=== PATIENT | female | born 1970 | race Asian ===

== ENCOUNTER 2021-02-26 12:02 | Outpatient (REF) | payer OTHER, SELFPAY ==
--- NOTE | ~2021-02-26 | MM_ITS ---
EXAMINATION: MM SCREENING DIGITAL BREAST TOMOSYNTHESIS, BILATERAL CLINICAL INFORMATION: Screening. Asymptomatic. The lifetime risk of breast cancer based on the Tyrer-Cuzick Model is 8.2%. COMPARISON: Mammography: September 18, 2019 and studies dating back to December 31, 2011 TECHNIQUE: Digital mammography is performed in craniocaudal and mediolateral oblique views along with computer-aided detection (CAD). Digital breast tomosynthesis is performed in implant-displaced craniocaudal and implant-displaced mediolateral oblique views along with computer-aided detection (CAD). Synthesized 2D images are generated from the tomosynthesis. FINDINGS: The breasts are extremely dense, which lowers the sensitivity of mammography (ACR BI-RADS breast composition Category d). There are no significant masses, abnormal calcifications, or other abnormalities. MM/MM tomosynthesis screen imp BI IMPRESSION: There are no significant changes from prior study. ASSESSMENT: BI-RADS 1: Negative RECOMMENDATION: Routine annual mammography screening. This patient's information was entered into a reminder system with a target due date for their next mammogram.
== END 2021-02-26 12:03 | disposition home or self-care (01) ==
LOC: HO.MAMMO 12:02
PROVIDERS: PCP Internal Medicine; Visit Provider Internal Medicine
DX: Z12.31 Encounter for screening mammogram for malignant neoplasm of breast (principal)
CPT/HCPCS: 77063; 77067

== ENCOUNTER 2021-11-09 16:57 | Outpatient (REF) | payer OTHER, SELFPAY ==
[2021-11-09 17:11] LABS: MANUAL DIFF FLAG NO
[2021-11-09 17:18] LABS: Basophils Percent Auto 0.5 % (0-2); Eosinophils Absolute Auto 0.1 X10*3/uL (0.0-0.4); Eosinophils Percent Auto 1.1 % (0-4); Hematocrit 39.8 % (37.0-47.0); Hemoglobin 12.9 g/dl (12.0-16.0); Imm Gran Abs Auto 0.01 X10*3/uL (0.00-0.03); Imm Gran Pct Auto 0.2 % (0.0-0.4); Lymphocytes Absolute Auto 2.7 X10*3/uL (1.2-4.9); Mean Corpuscular HGB Conc 32.4 g/dl (31.0-35.0); Mean Corpuscular Hemoglobin 27.5 pg (27.0-33.0); Mean Corpuscular Volume 84.9 fL (80.0-98.0); Mean Platelet Volume 9.2 fL (9.4-12.3); Monocytes Absolute Auto 0.5 X10*3/uL (0.1-1.2); Monocytes Percent Auto 9.4 % (2-11); Neutrophils Absolute Auto 2.3 x10*3/uL (2.0-8.3); Neutrophils Percent Auto 40.8 % (45-73); Platelet Count 219 X10*3/uL (160-400); Red Blood Count 4.69 X10*6/uL (4.20-5.50); Red Cell Distribution Width 12.7 % (11.0-16.0); White Blood Count 5.5 X10*3/uL (4.8-10.8)
[2021-11-09 17:41] LABS: Alanine Aminotransferase 27 U/L (0-31); Anion Gap 11 (12-20); Aspartate Amino Transferase 29 U/L (5-31); Blood Urea Nitrogen 14 mg/dL (9-16); Calcium 9.9 mg/dL (8.4-10.2); Carbon Dioxide 28 mmol/L (22-29); Chloride 104 mmol/L (96-108); Cholesterol 266 mg/dL; Estimated Glomerular Filt Rate > 60; Glucose Random 87 mg/dL (60-115); HDL Cholesterol 95 mg/dL; LDL Cholesterol Calculated 163 mg/dl; Sodium 139 mmol/L (135-145); Triglycerides 43 mg/dL
[2021-11-09 18:03] LABS: Thyroid Stimulating Hormone 3.14 uIU/mL (0.32-4.0)
[2021-11-10 08:01] LABS: ~HepC Num1 0.11 S/CO (0.00-0.79); ~Hepatitis C Antibody Nonreactive (Nonreactive)
== END 2021-11-09 16:58 | disposition home or self-care (01) ==
LOC: HO.LAB 16:57
PROVIDERS: Visit Provider Internal Medicine
DX: Z00.00 Encounter for general adult medical examination without abnormal findings (principal); J45.909 Unspecified asthma, uncomplicated; F41.1 Generalized anxiety disorder
CPT/HCPCS: 36415; 80048; 80061; 84443; 84450; 84460; 85025; 86803

== ENCOUNTER 2022-03-03 15:55 | Outpatient (REF) | payer OTHER, SELFPAY ==
[2022-03-06 03:12] LABS: HPV mRNA E6/E7 rflx Not Detected (Not Detected)
== END 2022-03-03 15:56 | disposition home or self-care (01) ==
LOC: HO.LAB 15:55
PROVIDERS: PCP Internal Medicine; Visit Provider Obstetrics & Gynecology
DX: Z01.419 Encounter for gynecological examination (general) (routine) without abnormal findings (principal); Z30.432 Encounter for removal of intrauterine contraceptive device
CPT/HCPCS: 58301; 81003; 87624; 88142

== ENCOUNTER 2022-03-16 16:04 | Outpatient (REF) | payer OTHER, SELFPAY ==
--- NOTE | ~2022-03-16 | MM_ITS ---
EXAMINATION: MM SCREENING DIGITAL BREAST TOMOSYNTHESIS, BILATERAL CLINICAL INFORMATION: Screening. Asymptomatic. The lifetime risk of breast cancer based on the Tyrer-Cuzick Model is 9%. COMPARISON: Mammography: 02/26/2021, 09/18/2019 TECHNIQUE: Digital mammography is performed in craniocaudal and mediolateral oblique views along with computer-aided detection (CAD). Digital breast tomosynthesis is performed in implant-displaced craniocaudal and implant-displaced mediolateral oblique views along with computer-aided detection (CAD). Synthesized 2D images are generated from the tomosynthesis. FINDINGS: There are scattered areas of fibroglandular density (ACR BI-RADS breast composition Category b). There are bilateral implants. The implant contours are smooth and similar to prior studies. Fibroglandular parenchymal pattern is similar to prior exams. No developing density or interval mass or architectural abnormality. No abnormal calcifications. The axilla and skin contours are unremarkable. MM/MM tomosynthesis screen imp BI IMPRESSION: No mammographic evidence of malignancy. ASSESSMENT: BI-RADS 1: Negative RECOMMENDATION: Routine annual mammography screening. This patient's information was entered into a reminder system with a target due date for their next mammogram.
== END 2022-03-16 16:05 | disposition home or self-care (01) ==
LOC: HO.MAMMO 16:04
PROVIDERS: Visit Provider Internal Medicine
DX: Z12.31 Encounter for screening mammogram for malignant neoplasm of breast (principal)
CPT/HCPCS: 77063; 77067

== ENCOUNTER 2022-06-30 15:25 | Outpatient (REF) | payer OTHER, SELFPAY | END 2022-06-30 15:26 | disposition home or self-care (01) | LOC: HO.LAB 15:25 | PROVIDERS: Visit Provider Obstetrics & Gynecology | DX: R87.615 Unsatisfactory cytologic smear of cervix (principal) | CPT/HCPCS: 88142 ==

== ENCOUNTER 2022-09-11 10:31 | Outpatient (REF) | payer OTHER, SELFPAY ==
[2022-09-11 10:44] LABS: MANUAL DIFF FLAG NO
[2022-09-11 11:24] LABS: Basophils Percent Auto 0.6 % (0-2); Eosinophils Absolute Auto 0.1 X10*3/uL (0.0-0.4); Eosinophils Percent Auto 1.5 % (0-4); Hematocrit 42.1 % (37.0-47.0); Hemoglobin 13.9 g/dl (12.0-16.0); Imm Gran Abs Auto 0.01 X10*3/uL (0.00-0.03); Imm Gran Pct Auto 0.2 % (0.0-0.4); Lymphocytes Absolute Auto 2.2 X10*3/uL (1.2-4.9); Lymphocytes Percent Auto 47.4 % (20-40); Mean Corpuscular Hemoglobin 28.4 pg (27.0-33.0); Mean Corpuscular Volume 86.1 fL (80.0-98.0); Mean Platelet Volume 9.8 fL (9.4-12.3); Monocytes Absolute Auto 0.4 X10*3/uL (0.1-1.2); Monocytes Percent Auto 8.2 % (2-11); Neutrophils Percent Auto 42.1 % (45-73); Platelet Count 232 X10*3/uL (160-400); Red Blood Count 4.89 X10*6/uL (4.20-5.50); Red Cell Distribution Width 12.8 % (11.0-16.0); White Blood Count 4.6 X10*3/uL (4.8-10.8)
[2022-09-11 11:50] LABS: Alanine Aminotransferase 27 U/L (0-31); Anion Gap 14 (12-20); Aspartate Amino Transferase 30 U/L (5-31); Blood Urea Nitrogen 14 mg/dL (9-16); Calcium 9.4 mg/dL (8.4-10.2); Carbon Dioxide 26 mmol/L (22-29); Chloride 107 mmol/L (96-108); Cholesterol 252 mg/dL; Estimated Glomerular Filt Rate > 60; Glucose Random 106 mg/dL (60-115); HDL Cholesterol 103 mg/dL; LDL Cholesterol Calculated 139 mg/dl; Potassium 4.6 mmol/L (3.3-5.1); Sodium 142 mmol/L (135-145); Triglycerides 52 mg/dL
[2022-09-13 08:13] LABS: ~Hepatitis C Antibody Nonreactive (Nonreactive)
== END 2022-09-11 10:32 | disposition home or self-care (01) ==
LOC: HO.LAB 10:31
PROVIDERS: PCP Internal Medicine; Visit Provider Internal Medicine
DX: Z00.00 Encounter for general adult medical examination without abnormal findings (principal)
CPT/HCPCS: 36415; 80048; 80061; 84450; 84460; 85025; 86803

== ENCOUNTER 2023-05-12 14:49 | Outpatient (REF) | payer BC, SELFPAY ==
--- NOTE | ~2023-05-12 | MM_ITS ---
EXAMINATION: MM SCREENING DIGITAL BREAST TOMOSYNTHESIS, BILATERAL CLINICAL INFORMATION: Screening. Asymptomatic. The lifetime risk of breast cancer based on the Tyrer-Cuzick Model is 9%. COMPARISON: Mammography: 03/16/2022, 02/26/2021, 09/18/2019 TECHNIQUE: Digital mammography is performed in craniocaudal and mediolateral oblique views along with computer-aided detection (CAD). Digital breast tomosynthesis is performed in implant-displaced craniocaudal and implant-displaced mediolateral oblique views along with computer-aided detection (CAD). Synthesized 2D images are generated from the tomosynthesis. FINDINGS: There are scattered areas of fibroglandular density (ACR BI-RADS breast composition Category b). Bilateral implant contours are smooth and similar to prior exams. Parenchymal pattern is similar to prior studies and there is no developing density or architectural abnormality. There are no significant masses, abnormal calcifications, or other abnormalities. The axilla and skin contours are unremarkable. No significant changes. MM/MM tomosynthesis screen imp BI IMPRESSION: No mammographic evidence of malignancy. ASSESSMENT: BI-RADS 1: Negative RECOMMENDATION: Routine annual mammography screening. This patient's information was entered into a reminder system with a target due date for their next mammogram.
== END 2023-05-12 14:50 | disposition home or self-care (01) ==
LOC: HO.MAMMO 14:49
PROVIDERS: Visit Provider Internal Medicine
DX: Z12.31 Encounter for screening mammogram for malignant neoplasm of breast (principal)
CPT/HCPCS: 77063; 77067

== ENCOUNTER 2023-07-04 15:04 | Outpatient (AMB) | payer BC, SELFPAY ==
--- OUTSIDE RECORDS SUMMARY | 2023-07-04 15:05 | XMS_ITS | Continuity of Care Document ---
Author Name Unknown Organization [facility] Address [address] [place] [address]- Care Team Providers Care Padding Gluer Name Role Phone Huma Vivar MD Primary Care Physician Encounter [facility] [place] Date(s): 11/01/22 - 12/25/22 [facility] [address] [place] [address]- Attending Physician: Jeffrey Ambrocio MD Admitting Physician: Jeffrey Ambrocio MD Referring Physician: Huma Vivar MD Allergies, Adverse Reactions, Alerts No Known Allergies Immunizations Given and Recorded Vaccine Date Status Refusal Reason SARS-CoV-2 (COVID-19) mRNA BNT-162b2 vac 11/13/21 Recorded Influenza Virus Vaccine (oldterm) 10/28/21 Recorde d influenza virus vaccine, inactivated 1 11/17/17 Gi catina influenza virus vaccine, inactivated 2 11/12/16 Re corded influenza virus vaccine, inactivated 3 09/24/13 Gi catina influenza virus vaccine, inactivated 4 12/08/12 Gi catina influenza virus vaccine, inactivated 5 05/09/12 Gi catina tetanus/diphtheria/pertussis, acel(Tdap) 01/25/14 Given 1Result Comment: [11/17/2017] 52969-397-54 2Result Comment: [11/12/2016] PER PT 3Admin Note: per pt 4Admin Note: VIS SHEET GIVEN (06/22/2011) GIVEN W/O INCIDENT 5Admin Note: PER PT Medications amoxicillin 500 mg oral capsule 1 capsule = 500 mg, By Mouth, 3 times a day, for dental surgery done yesterday, Maintenance, 11/17/22 9:00:00 EST, Capsule, Partial fill upon patient request if the prescription is for a schedule II opioid drug. Start Date: 11/17/22 Stop Date: 11/22/22 Status: Ordered Ativan 0.5 mg oral tablet See Instructions, TAKE 1 TABLET AT BEDTIME AND 1 TABLET 1 HOUR PRIOR TO PROCEDURE, # 2 tablet, 0 Refills, Maintenance, 12/08/22 8:07:00 EST, Partial fill upon patient request if the prescription is for a schedule II opioid drug. Start Date: 12/08/22 Status: Ordered Compression Stockings See Instructions, # 2 each, Refills 2, Tot. Refills 2, Maintenance, surgical, calf length 20-30 mm Hg Dx: varicose veins with pain, 08/03/22 16:39:00 EDT, Compound Start Date: 08/03/22 Status: Ordered Daily Multi 1 tablet, By Mouth, Daily, 0 Refills, Maintenance, 07/28/15 9:10:50 Start Date: 07/28/15 Status: Ordered fluticasone 250 mcg/inh inhalation powder 1 puffs, Inhalation, 2 times a day, # 60 each, 4 Refills, Maintenance, 10/18/22 14:21:00 EST, Powder, [facility] Partial fill upon patient request if the prescriptionis for a schedule II opioid drug., 137.16, cm, 090... Start Date: 10/18/22 Status: Ordered meloxicam 15 mg oral tablet 1 tablet = 15 mg, By Mouth, Daily, # 30 tablet, 0 Refills, Maintenance, 10/01/22 12:36:00 EDT, Tablet, Partial fill upon patient request if the prescription is for a schedule II opioid drug. Start Date: 10/01/22 Status: Ordered MiraLax = 17 Gm, By Mouth, Daily, 0 Refills, Maintenance, 11/06/21 14:42:00 EST, Partial fill upon patient request if the prescription is for a schedule II opioid drug. Start Date: 11/06/21 Status: Ordered Problem List Condition Confirmation Course Effective Dates Status [facility] Inform[facility] History of bilateral breast implants Confirmed Active Lumbar radiculitis Confirmed Active Myofascial pain Confirmed Active Sacroiliac joint pain Confirmed Active Urinary incontinence Confirmed Active Social History Social History Type Response Smoking Status Never smoker entered on: 11/09/13 Sex Patient Care team information Care Team Personnel Name: Huma Vivar MD Position: [facility] Primary Care Physician Member Role: PCP Address: Address: [address] [place] [address] Adult [place] [address]- Name: Denise Santoro RN Position: [facility] RN Member Role: Primary Care Nurse Care Team Related Persons Name: PHILIP CHAMBERLAIN Address: [address] [address]
--- OUTSIDE RECORDS SUMMARY | 2023-07-04 15:05 | XMS_ITS | Continuity of Care Document ---
Author Name Unknown Organization [facility] Address [address] [place] [address]- Care Team Providers Care Clinical Secretary Name Role Phone Huma Vivar MD Primary Care Physician [place] [facility] [place] 10/01/22 - 10/08/22 [facility] [address] [place] [address]- Encounter Diagnosis HLD (hyperlipidemia)(Discharge Diagnosis) - 10/01/22 Subclinical hypothyroidism(Discharge Diagnosis) - 10/01/22 Mild asthma(Discharge Diagnosis) - 10/01/22 Attending Physician: Huma Vivar MD Allergies, Adverse Reactions, [...] tetanus/diphtheria/pertussis, acel(Tdap) 01/25/14 Given 1Result Comment: [11/17/2017] 81381-482-29 2Result Comment: [11/12/2016] PER PT 3Admin Note: per pt 4Admin Note: VIS SHEET GIVEN (06/22/2011) GIVEN W/O INCIDENT 5Admin Note: PER PT Medications Compression Stockings See Instructions, # 2 each, [...] day, # 60 each, 4 Refills, Maintenance, 10/01/22 12:39:00 EDT, Powder, [id number], Partial fill upon patient request if the prescription is for a schedule IIopioid drug., 137.16, cm, 08/03/22 16:28:00 EDT, He... Start Date: 10/01/22 Status: Ordered meloxicam 15 mg oral tablet [...] radiculitis Confirmed Active Myofascial pain Confirmed Active Urinary incontinence Confirmed Active Diagnosis Diagnosis Type Effective Dates Health Status Clinical Service Informant HLD (hyperlipidemia) Discharge Diagnosis 10/01/22 Subclinical hypothyroidism Discharge Diagnosis 10/01/22 Mild asthma Discharge Diagnosis 10/01/22 Social History Social History Type Response Smoking Status Never smoker entered on: 11/09/13 Sex Patient Care team information Care Team Personnel Name: Huma Vivar MD Position: [facility] Primary Care Physician Member Role: PCP Address: Address: [address] [place] [address] Adult [place] [address]- Name: Denise Santoro RN Position: [facility] RN Member Role: Primary Care Nurse Care Team Related Persons Name: PHILIP CHAMBERLAIN Address: [address] [address]
--- OUTSIDE RECORDS SUMMARY | 2023-07-04 15:05 | XMS_ITS | Continuity of Care Document ---
Author Name Unknown Organization [facility] Address [address] [place] [address]- Care Team Providers Care Shredded Filler Machine Wrapper Layer Name Role Phone Huma Vivar MD Primary Care Physician Encounter [facility] [place] [place] Date(s): 04/18/23 - 05/18/23 [facility] [address] [place], [place] [address] Allergies, Adverse Reactions, Alerts No Known Allergies [...] tetanus/diphtheria/pertussis, acel(Tdap) 01/25/14 Given 1Result Comment: [11/17/2017] 94643-077-74 2Result Comment: [11/12/2016] PER PT 3Admin Note: per pt 4Admin Note: VIS SHEET GIVEN (06/22/2011) GIVEN W/O INCIDENT 5Admin Note: PER PT Medications Ativan 0.5 mg oral tablet See Instructions, [...] a schedule II opioid drug., 137.16, cm, ... Start Date: 10/18/22 Status: Ordered meloxicam 15 mg oral tablet 1 tablet = 15 mg, By Mouth, Daily, # 30 tablet, 4 Refills, Maintenance, 02/11/23 14:32:00 EDT, Tablet, [facility][id number], Partial fill upon patient request if the prescription is for a schedule II opioid drug., 162, cm, 12/28/22 10:09:00 EST, Height Start Date: 02/11/23 Status: Ordered MiraLax = 17 Gm, By Mouth, Daily, 0 Refills, Maintenance, 11/06/21 14:42:00 EST, Partial fill upon patient request if the prescription is for a schedule II opioid drug. Start Date: 11/06/21 Status: Ordered omeprazole 40 mg oral enteric coated capsule 1 capsule = 40 mg, By Mouth, Daily, take daily with meloxicam, # 30 capsule, 2 Refills, Maintenance, 02/11/23 14:33:00 EDT, EC Capsule, [id number], Partial fill upon patient request if the prescription is for a schedule II opioid drug., 162, c... Start Date: 02/11/23 Status: Ordered Problem List Condition Confirmation Course Effective Dates Status [facility] History of bilateral breast implants Confirmed Active Lumbar radiculitis Confirmed Active Myofascial pain Confirmed Active Sacroiliac joint pain Confirmed Active Urinary incontinence Confirmed Active Social History Social History Type Response Smoking Status Never smoker entered on: 11/09/13 Sex Patient Care team information Care Team Personnel Name: Huma Vivar MD Position: [facility] Physician - Primary Care Member Role: PCP Address: Address: [address] [place] [address] Adult [place] [address]- Name: Denise Santoro RN Position: [facility] RN Member Role: Primary Care Nurse Care Team Related Persons Name: PHILIP CHAMBERLAIN Address: [address] [address]
--- OUTSIDE RECORDS SUMMARY | 2023-07-04 15:05 | XMS_ITS | Continuity of Care Document ---
Author Name Unknown Organization [facility] Address [address] [place] [address]- Care Team Providers Care Coding Advisor Name Role Phone Huma Vivar MD Primary Care Physician Encounter [facility] [place] [facility] [place] [id number] Date(s): 12/03/22 - 01/29/23 [facility] [address] [place] [address]- Attending Physician: Jeffrey Ambrocio MD Admitting Physician: Jeffrey Ambrocio MD Allergies, Adverse Reactions, Alerts No Known [...] tetanus/diphtheria/pertussis, acel(Tdap) 01/25/14 Given 1Result Comment: [11/17/2017] 53743-776-64 2Result Comment: [11/12/2016] PER PT 3Admin Note: [...] Team Personnel Name: Huma Vivar MD Position: [facility] Primary Care Physician Member Role: PCP Address: Address: [address] [place] [address] Adult [place] [address]- Name: Denise Santoro RN Position: [facility] RN Member Role: Primary Care Nurse Care Team Related Persons Name: PHILIP CHAMBERLAIN Address: [address] [address]
--- OUTSIDE RECORDS SUMMARY | 2023-07-04 15:05 | XMS_ITS | Continuity of Care Document ---
Author Name Unknown Organization [facility] Address [address] [place] [address]- Care Team Providers Care Glass Cutting Machine Feeder Name Role Phone Huma Vivar MD Primary Care Physician [phone] Encounter [facility] [place] Date(s): 11/01/22 - 12/25/22 [facility] [address] [place] [address]- Attending Physician: Jeffrey Ambrocio MD Admitting Physician: Jeffrey Ambrocio MD Referring Physician: Jeffrey Ambrocio MD Allergies, Adverse Reactions, [...] tetanus/diphtheria/pertussis, acel(Tdap) 01/25/14 Given 1Result Comment: [11/17/2017] [id number] 2Result Comment: [11/12/2016] PER PT 3Admin Note: [...] Team Personnel Name: Huma Vivar MD Position: [facility] Primary Care Physician Member Role: PCP Address: Address: [address] [place] [address] Adult [place] [address]- Name: Denise Santoro RN Position: [facility] RN Member Role: Primary Care Nurse Care Team Related Persons Name: PHILIP CHAMBERLAIN Address: [address] [address]
--- OUTSIDE RECORDS SUMMARY | 2023-07-04 15:05 | XMS_ITS | Continuity of Care Document ---
Author Name Unknown Organization [facility] Address [address] [place] [address]- Care Team Providers Care Teradata Developer Name Role Phone Huma Vivar MD Primary Care Physician [place] [facility] [place]21 - 11/13/21 [facility] [address] [place] [address]- Encounter Diagnosis Annual physical exam(Discharge Diagnosis) - 11/06/21 Mild asthma(Discharge Diagnosis) - 11/06/21 SAVI (generalized anxiety disorder)(Discharge Diagnosis) - 11/06/21 Attending Physician: Huma Vivar MD Allergies, Adverse Reactions, Alerts Substance Reaction Severity Status NKA Active Immunizations Given and Recorded Vaccine Date Status Refusal Reason Influenza Virus Vaccine (oldterm) 10/28/21 Recorde d influenza virus vaccine, inactivated 1 11/17/17 Gi catina influenza virus vaccine, inactivated 2 11/12/16 Re corded influenza virus vaccine, inactivated 3 09/24/13 Gi catina influenza virus vaccine, inactivated 4 12/08/12 Gi catnia influenza virus vaccine, inactivated 5 05/09/12 Gi catina tetanus/diphtheria/pertussis, acel(Tdap) 01/25/14 Given 1Result Comment: [11/17/2017] [id number] 2Result Comment: [11/12/2016] PER PT 3Admin Note: per pt 4Admin Note: VIS SHEET GIVEN (06/22/2011) GIVEN W/O INCIDENT 5Admin Note: PER PT Medications Daily Multi 1 tablet, By Mouth, Daily, 0 Refills, Maintenance, 07/28/15 9:10:50 Start Date: 07/28/15 Status: Ordered FLUoxetine 10 mg oral tablet 1 tablet = 10 mg, By Mouth, Daily, # 90 tablet, 0 Refills, Maintenance, 11/06/21 14:44:00 EST, Tablet, [facility], Partial fill upon patient request if the prescription is for a schedule II opioid drug., 137.16, cm, 11/06/21 14:15:00 EST, H... Start Date: 11/06/21 Status: Ordered fluticasone 250 mcg/inh inhalation powder 1 puffs, Inhalation, 2 times a day, # 60 each, 2 Refills, Maintenance, 11/06/21 15:04:00 EST, Powder, [facility], Partial fill upon patient request if the prescription is for a schedule IIopioid drug., 137.16, cm, 11/06/21 14:15:00 EST, He... Start Date: 11/06/21 Status: Ordered ibuprofen 600 mg oral tablet 600 mg, 1, tablet, By Mouth, 3 times a day, # 90 tablet, Refills 0, Tot. Refills 0, Maintenance, 11/06/21 15:03:00 EST, Route to Pharmacy Electronically, [facility], Partial fill upon patient request if the prescription is for a schedule II... Start Date: 11/06/21 Status: Ordered MiraLax = 17 Gm, By Mouth, Daily, 0 Refills, Maintenance, 11/06/21 14:42:00 EST, Partial fill upon patient request if the prescription is for a schedule II opioid drug. Start Date: 11/06/21 Status: Ordered Problem List Condition Effective Dates Status Health Status Inform ant History of bilateral breast implants(Confirmed) Active Lumbar radiculitis(Confirmed) Active Myofascial pain(Confirmed) Active Urinary incontinence(Confirmed) Active Diagnosis Diagnosis Type Effective Dates Health Status Cl inical Service Informant Annual physical exam Discharge Diagnosis 11/06/21 Mild asthma Discharge Diagnosis 11/06/21 SAVI (generalized anxiety disorder) Discharge Diagnosis 11/06/21 Vital Signs Most recent to oldest [Reference Range]: 1 Height 137.16 cm (11/06/21 2:15 PM) Weight 55 kg (11/06/21 2:15 PM) Oxygen Saturation [94-100 %] 99 % (11/06/21 2:15 PM) Pulse Rate [55-90 bpm] 56 bpm (11/06/21 2:15 PM) Body Mass Index [18.5-24.99] 29.24 *H* (11/06/21 2:15 PM) Blood Pressure [90-138/55-84 mm Hg] 90/6 0mm Hg (11/06/21 2:15 PM) Mode of Delivery (Oxygen) Room air (11/06/21 2:15 PM) Blood pressure sites Arm, left (11/06/21 2:15 PM) Social History Social History Type Response Smoking Status Never smoker entered on: 11/09/13 Sex
--- OUTSIDE RECORDS SUMMARY | 2023-07-04 15:05 | XMS_ITS | Continuity of Care Document ---
Author Name Unknown Organization [facility] Address [address] [place] [address]- Care Team Providers Care Dukey Rider Name Role Phone Huma Vivar MD Primary Care Physician [place] [facility] [place](s[place] 02/11/23 - 02/18/23 [facility] [address] [place] [address]- Encounter Diagnosis Lumbar radiculitis(Discharge Diagnosis) - 02/11/23 Annual physical exam(Discharge Diagnosis) - 02/11/23 Subclinical hypothyroidism(Discharge Diagnosis) - 02/11/23 Chest pain(Discharge Diagnosis) - 02/11/23 Attending Physician: Huma iVvar MD Allergies, Adverse Reactions, Alerts No Known [...] tetanus/diphtheria/pertussis, acel(Tdap) 01/25/14 Given 1Result Comment: [11/17/2017] [id number] 2Result Comment: [11/12/2016] PER PT 3Admin Note: [...] 4 Refills, Maintenance, 02/11/23 14:32:00 EDT, Tablet, [facility][id number], Partial fill upon patient request if [...] Effective Dates Health Status Clinical Service Informant Lumbar radiculitis Discharge Diagnosis 02/11/23 Annual physical exam Discharge Diagnosis 02/11/23 Subclinical hypothyroidism Discharge Diagnosis 02/11/23 Chest pain Discharge Diagnosis 02/11/23 Vital Signs Most recent to oldest [Reference Range]: 1 2 3 Height 162 cm (02/14/23 1:34 PM) 162 cm (02/11/23 2:45 PM) 162 cm (02/11/23 2:44 PM) Weight 56.7 kg (02/14/23 1:34 PM) 56.7 kg (02/11/23 2:44 PM) Oxygen Saturation [94-100 %] 100 % (02/11/23 2:44 PM) Pulse Rate [55-90 bpm] 68 bpm (02/11/23 2:44 PM) Body Mass Index [18.5-24.99 kg/m2] 21.6 kg/m2 (02/11/23 2:44 PM) Blood Pressure [90-138/55-84 mm Hg] 82/44mm Hg *L* (02/11/23 2:45 PM) 80/40mm Hg *L* (02/11/23 2:44 PM) 94/70mm Hg (02/11/23 2:27 PM) Mode of Delivery (Oxygen) Room air (02/11/23 2:44 PM) Blood pressure sites Arm, left (02/11/23 2:45 PM) Arm, left (02/11/23 2:44 PM) Weight Obtained Via Standing scale (02/11/23 2:44 PM) Social History Social History Type Response Smoking Status Never smoker entered on: 11/09/13 Sex Patient Care team information Care Team Personnel Name: Huma Vivar MD Position: [facility] Primary Care Physician Member Role: PCP Address: Address: [address] [place] [address] Adult [place] [address]- [place] Name: Denise Santoro RN Position: [facility] RN Member Role: Primary Care Nurse Care Team Related Persons Name: PHILIP CHAMBERLAIN Address: [address] [address]
--- OUTSIDE RECORDS SUMMARY | 2023-07-04 15:05 | XMS_ITS | Continuity of Care Document ---
Author Name Unknown Organization [facility] Address [address] [place] [address]- Care Team Providers Care Sap Security Architect Name Role Phone Cb ARIAS, Huma Primary Care Physician Encounter [facility] Date(s): 03/05/22 - 04/04/22 [facility] [address] [place] [address]- Allergies, Adverse Reactions, Alerts No Known Allergies [...] tetanus/diphtheria/pertussis, acel(Tdap) 01/25/14 Given 1Result Comment: [11/17/2017] [id number] 2Result Comment: [11/12/2016] PER PT 3Admin Note: per pt 4Admin Note: VIS SHEET GIVEN (06/22/2011) GIVEN W/O INCIDENT 5Admin Note: PER PT Medications Daily Multi 1 tablet, By Mouth, Daily, 0 Refills, Maintenance, 07/28/15 9:10:50 Start Date: 07/28/15 Status: Ordered FLUoxetine 10 mg oral tablet 1 tablet = 10 mg, By Mouth, Daily, # 90 tablet, 0 Refills, Maintenance, 11/06/21 14:44:00 EST, Tablet, [facility], Partial fill upon patient request if the prescription is for a schedule II opioid drug., 137.16, cm, 11/06/21 14:15:00 EST, H... Start Date: 11/06/21 Status: Ordered fluticasone 250 mcg/inh inhalation powder 1 puffs, Inhalation, 2 times a day, # 60 each, 2 Refills, Maintenance, 11/06/21 15:04:00 EST, Powder, [facility], Partial fill upon patient request if the prescription is for a schedule IIopioid drug., 137.16, cm, 11/06/21 14:15:00 EST, He... Start Date: 11/06/21 Status: Ordered ibuprofen 600 mg oral tablet 600 mg, 1, tablet, By Mouth, 3 times a day, # 90 tablet, Refills 0, Tot. Refills 0, Maintenance, 11/06/21 15:03:00 EST, Route to Pharmacy Electronically, [facility], Partial fill upon patient [...] Active Myofascial pain(Confirmed) Active Urinary incontinence(Confirmed) Active Social History Social History Type Response Smoking Status Never smoker entered on: 11/09/13 Sex
--- OUTSIDE RECORDS SUMMARY | 2023-07-04 15:05 | XMS_ITS | Continuity of Care Document ---
Author Name Unknown Organization [facility] Address [address] [place] [address]- Care Team Providers Care Brick Molder Hand Name Role Phone Huma Vivar MD Primary Care Physician [place] [facility] [place] 08/12/22 - 12/10/22 [facility] [address] [place] [address]- Attending Physician: Jeffrey Ambrocio MD Admitting Physician: [...] tetanus/diphtheria/pertussis, acel(Tdap) 01/25/14 Given 1Result Comment: [11/17/2017] 71717-155-45 2Result Comment: [11/12/2016] PER PT 3Admin Note: [...] Team Personnel Name: Huma Vivar MD Position: [facility] Primary Care Physician Member Role: PCP Address: Address: [address] [place] [address] Adult [place] [address]- Name: Denise Santoro RN Position: [facility] RN Member Role: Primary Care Nurse Care Team Related Persons Name: PHILIP CHAMBERLAIN Address: [address] [address]
--- OUTSIDE RECORDS SUMMARY | 2023-07-04 15:05 | XMS_ITS | Continuity of Care Document ---
Author Name Unknown Organization [facility] Address [address] [place] [address]- Care Team Providers Care Toolman Name Role Phone Cb ARIAS, Huma Primary Care Physician [facility]counter [facility] Date(s): 10/20/20 - 11/19/20 [facility] [address] [place], [place] [address] Allergies, Adverse Reactions, Alerts Substance Reaction Severity Status NKA Active Immunizations Given and Recorded Vaccine Date Status Refusal Reason influenza virus vaccine, inactivated 1 11/17/17 Gi catina influenza virus vaccine, inactivated 2 11/12/16 Re corded influenza virus vaccine, inactivated 3 09/24/13 Gi catina influenza virus vaccine, inactivated 4 12/08/12 Gi catina influenza virus vaccine, inactivated 5 05/09/12 Gi catina tetanus/diphtheria/pertussis, acel(Tdap) 01/25/14 Given 1Result Comment: [11/17/2017] 27584-614-93 2Result Comment: [11/12/2016] PER PT 3Admin Note: per pt 4Admin Note: VIS SHEET GIVEN (06/22/2011) GIVEN W/O INCIDENT 5Admin Note: PER PT Medications Daily Multi 1 tablet, By Mouth, Daily, 0 Refills, Maintenance, 07/28/15 9:10:50 Start Date: 07/28/15 Status: Ordered Problem List Condition Effective Dates Status Health Status Inform ant History of bilateral breast implants(Confirmed) Active Lumbar radiculitis(Confirmed) Active Myofascial pain(Confirmed) Active Urinary incontinence(Confirmed) Active Social History Social History Type Response Smoking Status Never smoker entered on: 11/09/13 Sex
--- OUTSIDE RECORDS SUMMARY | 2023-07-04 15:05 | XMS_ITS | Continuity of Care Document ---
Author Name Unknown Organization [facility] Address [address] [place] [address]- Care Team Providers Care Laundry Operator Finishing Name Role Phone Cb ARIAS, Huma Primary Care Physician [facility]counter [facility] Date(s): 09/28/22 - 10/28/22 [facility] [address] [place] [address]- Allergies, Adverse Reactions, Alerts No Known Allergies [...] tetanus/diphtheria/pertussis, acel(Tdap) 01/25/14 Given 1Result Comment: [11/17/2017] 25775-748-73 2Result Comment: [11/12/2016] PER PT 3Admin Note: [...] a schedule II opioid drug., 137.16, cm, 09/0... Start Date: 10/18/22 Status: Ordered meloxicam 15 [...] Team Personnel Name: Huma Vivar MD Position: [facility] Primary Care Physician Member Role: PCP Address: Address: [address] [place] [address] Adult and Pediatric [place], [place] [address] Name: Denise Santoro RN Position: [facility] RN Member Role: Primary Care Nurse Care Team Related Persons Name: PHILIP CHAMBERLAIN Address: [address] [address]
--- OUTSIDE RECORDS SUMMARY | 2023-07-04 15:05 | XMS_ITS | Continuity of Care Document ---
Author Name Unknown Organization [facility] Address [address] [place] [address]- Care Team Providers Care Zinc Plater Name Role Phone Huma Vivar MD Primary Care Physician [phone] Encounter [facility] [place] Date(s): 12/04/20 - 12/11/20 [facility] [address] [place], [place] [address] Diagnosis Mild asthma(Discharge Diagnosis) - 12/04/20 Attending Physician: Huma Vivar MD Allergies, Adverse [...] tetanus/diphtheria/pertussis, acel(Tdap) 01/25/14 Given 1Result Comment: [11/17/2017] 57441-014-60 2Result Comment: [11/12/2016] PER PT 3Admin Note: per pt 4Admin Note: VIS SHEET GIVEN (06/22/2011) GIVEN W/O INCIDENT 5Admin Note: PER PT Medications Daily Multi 1 tablet, By Mouth, Daily, 0 Refills, Maintenance, 07/28/15 9:10:50 Start Date: 07/28/15 Status: Ordered fluticasone 250 mcg/inh inhalation powder 1 puffs, Inhalation, 2 times a day, # 60 each, 2 Refills, Maintenance, 12/05/20 11:46:00 EST, Powder, [facility], Partial fill upon patient request if the prescription is for a schedule II opioid drug., 137.16, cm, 10/27/20 13:23:00 EST, Height Start Date: 12/05/20 Status: Ordered ibuprofen 600 mg oral tablet 600 mg, 1, tablet, By Mouth, Every 8 hours, # 30 tablet, Refills 0, Tot. Refills 0, Acute 01/05/21 7:00:00 EST, 12/05/20 11:46:00 EST, Route to Pharmacy Electronically, [facility], Partial fill upon patient request if the prescription is for... Start Date: 12/05/20 Stop Date: 01/05/21 Status: Ordered Problem List Condition Effective Dates Status Health Status Inform ant History of bilateral breast implants(Confirmed) Active Lumbar radiculitis(Confirmed) Active Myofascial pain(Confirmed) Active Urinary incontinence(Confirmed) Active Diagnosis Diagnosis Type Effective Dates Health Status Clini mary Service Informant Mild asthma Discharge Diagnosis 12/04/20 Social History Social History Type Response Smoking Status Never smoker entered on: 11/09/13 Sex
--- OUTSIDE RECORDS SUMMARY | 2023-07-04 15:05 | XMS_ITS | Continuity of Care Document ---
Author Name Unknown Organization [facility] Address [address] [place] [address]- Care Team Providers Care Dredge Master Name Role Phone Huma Vivar MD Primary Care Physician [facility]counter [facility] Date(s): 08/11/21 - 09/10/21 [facility] [address] [place], [place] [address] Allergies, Adverse Reactions, Alerts Substance Reaction Severity [...] tetanus/diphtheria/pertussis, acel(Tdap) 01/25/14 Given 1Result Comment: [11/17/2017] [id number] 2Result Comment: [11/12/2016] PER PT 3Admin Note: [...] EST, Height Start Date: 12/05/20 Status: Ordered Problem List Condition Effective Dates Status Health Status Inform ant History of bilateral breast implants(Confirmed) Active Lumbar radiculitis(Confirmed) Active Myofascial pain(Confirmed) Active Urinary incontinence(Confirmed) Active Social History Social History Type Response Smoking Status Never smoker entered on: 11/09/13 Sex
--- OUTSIDE RECORDS SUMMARY | 2023-07-04 15:05 | XMS_ITS | Continuity of Care Document ---
Author Name Unknown Organization [facility] Address [address] [place] [address]- Care Team Providers Care Folder Machine Adjuster Name Role Phone Huma Vivar MD Primary Care Physician [phone] Encounter [facility] Date(s): 10/01/22 - 10/31/22 [facility] [address] [place] [address]- Attending Physician: David Schmidt Admitting Physician: David Schmidt Referring Physician: AdmtrDavid Allergies, Adverse Reactions, Alerts No Known Allergies [...] tetanus/diphtheria/pertussis, acel(Tdap) 01/25/14 Given 1Result Comment: [11/17/2017] 14318-055-39 2Result Comment: [11/12/2016] PER PT 3Admin Note: [...] a schedule II opioid drug., 137.16, cm, 0... Start Date: 10/18/22 Status: Ordered meloxicam 15 [...] Status Never smoker entered on: 11/09/13 Sex Note * Event Display: Non BH Lab Results Authored Date: * Event Display: MM Mammogram Authored Date: * Event Display: MM Mammogram Authored Date: * Event Display: MM Mammogram, Non- BH Authored Date: * Event Display: MRI Ankle/Foot, Non- BH Authored Date: * Event Display: MM Mammogram, Non- BH Authored Date: * Event Display: CT Scan Ankle/Foot, Non- BH Authored Date: * Event Display: Non BH Lab Results Authored Date: * Event Display: Non BH Lab Results Authored Date: * Event Display: Non BH Lab Results Authored Date: * Event Display: MM Mammogram, Non- BH Authored Date: * Event Display: MM Mammogram, Non- BH Authored Date: * Melodie Hill: PERFORM Event Display: Radiology Results Scanned Authored Date: Patient Care team information Care Team Personnel Name: Huma Vivar MD Position: [facility] Primary Care Physician Member Role: PCP Address: Address: [address] [place] [address] Adult [place] [address]- Name: Denise Santoro RN Position: [facility] RN Member Role: Primary Care Nurse Care Team Related Persons Name: PHILIP CHAMBERLAIN Address: [address] [address]
--- OUTSIDE RECORDS SUMMARY | 2023-07-04 15:05 | XMS_ITS | Continuity of Care Document ---
Author Name Unknown Organization [facility] Address [address] [place] [address]- Care Team Providers Care Medical Unit Secretary Name Role Phone Cb ARIAS, Huma Primary Care Physician [facility]counter [facility] Date(s): 05/19/21 - 06/18/21 [facility] [address] [place], [place] [address] Allergies, Adverse Reactions, Alerts Substance Reaction Severity [...] tetanus/diphtheria/pertussis, acel(Tdap) 01/25/14 Given 1Result Comment: [11/17/2017] [id number] 2Result Comment: [11/12/2016] PER PT 3Admin Note: [...]
--- OUTSIDE RECORDS SUMMARY | 2023-07-04 15:05 | XMS_ITS | Continuity of Care Document ---
Author Name Unknown Organization [facility] Address [address] [place] [address]- Care Team Providers Care Pier Master Name Role Phone Cb ARIAS, Huma Primary Care Physician [phone] Encounter [facility] Date(s): 11/05/22 - 12/05/22 [facility] [address] [place] [address]- Allergies, Adverse Reactions, Alerts No Known Allergies Immunizations Given and Recorded Vaccine Date Status Refusal Reason SARS-CoV-2 (COVID-19) mRNA BNT-162b2 vac 11/13/21 Recorded Influenza Virus Vaccine (oldterm) 10/28/21 Recorde d influenza virus vaccine, inactivated 1 11/17/17 Gi catina influenza virus vaccine, inactivated 2 11/12/16 Re corded influenza virus vaccine, inactivated 3 09/24/13 Gi ctaina influenza virus vaccine, inactivated 4 12/08/12 Gi catina influenza virus vaccine, inactivated 5 05/09/12 Gi catina tetanus/diphtheria/pertussis, acel(Tdap) 01/25/14 Given 1Result Comment: [11/17/2017] [id number] 2Result Comment: [11/12/2016] PER PT 3Admin Note: [...] PROCEDURE, # 2 tablet, 0 Refills, Maintenance, 11/01/22 9:41:00 EST, Partial fill upon patient request if the prescription is for a schedule II opioid drug. Start Date: 11/01/22 Status: Ordered Compression Stockings See Instructions, # [...] Team Personnel Name: Huma Vivar MD Position: [facility] Primary Care Physician Member Role: PCP Address: Address: [address] [place] [address] Adult [place] [address]- Name: Yvan GUERRA, Denise Position: S RN Member Role: Primary Care Nurse Care Team Related Persons Name: PHILIP CHAMBERLAIN Address: [address] [address]
--- OUTSIDE RECORDS SUMMARY | 2023-07-04 15:05 | XMS_ITS | Continuity of Care Document ---
Author Name Unknown Organization [facility] Address [address] [place] [address]- Care Team Providers Care Anatomic Pathologist Name Role Phone Huma Vivar MD Primary Care Physician [place] [facility] [place] 01/30/23 [facility] [address] [place] [address]- Attending Physician: David Schmidt Admitting Physician: David [...] tetanus/diphtheria/pertussis, acel(Tdap) 01/25/14 Given 1Result Comment: [11/17/2017] [id number] 2Result Comment: [11/12/2016] PER PT 3Admin Note: [...] Team Personnel Name: Huma Vivar MD Position: [facility] Primary Care Physician Member Role: PCP Address: Address: [address] [place] [address] Adult [place] [address]- Name: Denise Santoro RN Position: [facility] RN Member Role: Primary Care Nurse Care Team Related Persons Name: PHILIP CHAMBERLAIN Address: [address] [address]
--- OUTSIDE RECORDS SUMMARY | 2023-07-04 15:05 | XMS_ITS | Continuity of Care Document ---
Author Name Unknown Organization [facility] Address [address] [place] [address]- Care Team Providers Care Supervisor Pit And Auxiliaries Name Role Phone Cb ARIAS, Huma Primary Care Physician [facility]counter [facility] Date(s): 02/12/23 - 03/14/23 [facility] [address] [place] [address]- Allergies, Adverse Reactions, Alerts No Known Allergies [...] tetanus/diphtheria/pertussis, acel(Tdap) 01/25/14 Given 1Result Comment: [11/17/2017] [id number] 2Result Comment: [11/12/2016] PER PT 3Admin Note: [...] 4 Refills, Maintenance, 02/11/23 14:32:00 EDT, Tablet, [facility]/pharmacy #[id number], Partial fill upon patient request if [...] Team Personnel Name: Huma Vivar MD Position: [facility] Primary Care Physician Member Role: PCP Address: Address: [address] [place] [address] Adult [place] [address]- Name: Denise Santoro RN Position: [facility] RN Member Role: Primary Care Nurse Care Team Related Persons Name: PHILIP CHAMBERLAIN Address: [address] [address]
--- OUTSIDE RECORDS SUMMARY | 2023-07-04 15:05 | XMS_ITS | Continuity of Care Document ---
Author Name Unknown Organization [facility] Address [address] [place] [address]- Care Team Providers Care Blockman Name Role Phone Huma Vivar MD Primary Care Physician [phone] En[place] [facility] [place](s): 10/26/22 - 11/02/22 [facility] [address] [place] [address]- Attending Physician: Jeffrey Ambrocio MD Admitting Physician: [...] tetanus/diphtheria/pertussis, acel(Tdap) 01/25/14 Given 1Result Comment: [11/17/2017] [id number] 2Result Comment: [11/12/2016] PER PT 3Admin Note: [...] List Condition Confirmation Course Effective Dates Status [facility] Informant History of bilateral breast implants Confirmed Active Lumbar radiculitis Confirmed Active Myofascial pain Confirmed Active Urinary incontinence Confirmed Active Vital Signs Most recent to oldest [Reference Range]: 1 Height 137.16 cm (10/26/22 3:33 PM) Weight 56.16 kg (10/26/22 3:33 PM) Oxygen Saturation [94-100 %] 98 % (10/26/22 3:33 PM) Pulse Rate [55-90 bpm] 53 bpm *L* (10/26/22 3:33 PM) Body Mass Index [18.5-24.99 kg/m2] 29.85 kg/m2 *H* (10/26/22 3:33 PM) Blood Pressure [90-138/55-84 mm Hg] 118/ 68mm Hg (10/26/22 3:33 PM) Mode of Delivery (Oxygen) Room air (10/26/22 3:33 PM) Blood pressure sites Arm, left (10/26/22 3:33 PM) Weight Obtained Via Patient/family state d (10/26/22 3:33 PM) Social History Social History Type Response Smoking Status Never smoker entered on: 11/09/13 Sex Note * Keeley Junior: PERFORM, SIGN, VERIFY Event Display: Patient Education/Instruction Authored Date: [id number] [facility] [address] Clinical Summary Name NORBERT CHAMBERLAIN Age 51 Years 1970 PCP Huma Vivar MD PCP Visit Date 10/26/2022 15:20:00 Additional Instructions: Scheduled Appointments?? Future Appointments ?*Pain??Management ?[address]??[place],??[place],??[address] ?Phone:??[phone]?Fax:??-- ?Appt. Date:??11/09/2022?10:10 AM ?Scheduled Provider:??Pasha ARIAS, Juan Antonio Pendleton Follow-Up Instructions ?? Diagnosis Medications: Please continue your medications until treatment is completed or stopped by your provider. Discuss any questions related to medications with your provider. Medications to Continue with No Changes These medications were not printed or sent to your pharmacy Durable Medical Equipment (Compression Stockings) surgical, calf length 20-30 mm Hg Dx: varicose veins with pain. Refills: 2. Next Dose: Fluticasone (fluticasone 250 mcg/inh inhalation powder) 1 puff(s) Inhalation twice a day. Refills: 4. Next Dose: Meloxicam (meloxicam 15 mg oral tablet) 1 tab(s) Oral Daily. Next Dose: Multivitamin With Minerals (Daily Multi) 1 tab(s) Oral Daily. Next Dose: PEG Electrolyte Solution (MiraLax) 17 gram Oral Daily. Next Dose: Allergy Info:?? NKA Medications Given This Visit Future Orders ?No future orders Vital Signs Height 137.16 cm Weight 56.16 kg BMI 29.85 kg/m2 Blood Pressure 118 mm Hg/68 mm Hg Temperature Pulse Rate 53 bpm Respiratory Rate 02 Sat Mode of Delivery 98 %/Room air You can now view a summary of your hospital visit from the comfort of your home through a free online portal called [employer]. [employer] is a website that allows you to securely view your medical information including discharge summary, medications and follow-up visits. ??You can alsosend a secure electronic message to your doctor???s office to request appointments, renew medications or just ask a question. You can enroll at [email or web address] or register during your next office visit. Disclaimer:?? The information provided is of a general nature and is intended to be used in conjunction with the recommendations and advice of your health care practitioner. ??Every effort has been made to ensure that the information provided is accurate and complete at the time it is provided to you however, as your needs change, or, as new ??information becomes available, different or additional instructions may be required. If you have questions, please consult with your primary care provider or pharmacist, as appropriate. ??This information is not intended to serve as substitution for assessment and evaluation by a qualified health care provider. If you do not have a primary care provider, you may find a [facility] provider by calling [facility] [employer] at [phone]. For information about the plan of care including goals and instructions for your diagnosis, please see the patient education orders section of this document. Patient Education Materials?? The content of this educational material or handout may have been modified, supplemented, or adapted from its original content and format to support your individualized medical care. Patient Care team information Care Team Personnel Name: Huma Vivar MD Position: [facility] Primary Care Physician Member Role: PCP Address: Address: [address] [place] [address] Adult and Pediatric Medicine [place], [place] [address] Name: Denise Santoro RN Position: [facility] RN Member Role: Primary Care Nurse Care Team Related Persons Name: PHILIP CHAMBERLAIN Address: [address] [address]
--- OUTSIDE RECORDS SUMMARY | 2023-07-04 15:05 | XMS_ITS | Continuity of Care Document ---
Author Name Unknown Organization [facility] Address [address] [place] [address]- Care Team Providers Care Bus And Sys Integration Senior Manager Name Role Phone Huma Vivar MD Primary Care Physician [facility] Date(s): 08/05/22 - 10/28/22 [facility] [address] [place] [address]- Attending Physician: Huma Vivar MD Allergies, Adverse [...] tetanus/diphtheria/pertussis, acel(Tdap) 01/25/14 Given 1Result Comment: [11/17/2017] [id number] 2Result Comment: [11/12/2016] PER PT 3Admin Note: [...] Team Personnel Name: Huma Vivar MD Position: [facility] Primary Care Physician Member Role: PCP Address: Address: [address] [place] [address] Adult [place] [address]- Name: Denise Santoro RN Position: [facility] RN Member Role: Primary Care Nurse Care Team Related Persons Name: PHILIP CHAMBERLAIN Address: [address] [address]
--- OUTSIDE RECORDS SUMMARY | 2023-07-04 15:05 | XMS_ITS | Continuity of Care Document ---
Author Name Unknown Organization [facility] Address [address] [place] [address]- Care Team Providers Care Mobile Lab Technician Name Role Phone Cb ARIAS, Huma Primary Care Physician [facility] Date(s): 05/19/21 - 06/18/21 [facility] [address] [place], [place] [address] Allergies, Adverse Reactions, Alerts Substance Reaction Severity [...] tetanus/diphtheria/pertussis, acel(Tdap) 01/25/14 Given 1Result Comment: [11/17/2017] [id number] 2Result Comment: [11/12/2016] PER PT 3Admin Note: [...]
--- OUTSIDE RECORDS SUMMARY | 2023-07-04 15:06 | XMS_ITS | Continuity of Care Document ---
Author Name Unknown Organization [facility] Address [address] [place] [address]- Care Team Providers Care Director Trust Name Role Phone Huma Vivar MD Primary Care Physician [phone] Encounter [facility] Date(s): 01/17/23 - 02/27/23 [facility] [address] [place] [address]- Attending Physician: Gilmar De La Torre MD Admitting Physician: Gilmar De La Torre MD Allergies, Adverse Reactions, Alerts No Known [...] tetanus/diphtheria/pertussis, acel(Tdap) 01/25/14 Given 1Result Comment: [11/17/2017] 54838-213-84 2Result Comment: [11/12/2016] PER PT 3Admin Note: [...] 10/18/22 14:21:00 EST, Powder, [facility]), Partial fill upon patient request if the prescriptionis for a schedule II opioid drug., 137.16, cm, ... Start Date: 10/18/22 Status: Ordered meloxicam 15 mg oral tablet 1 tablet = 15 mg, By Mouth, Daily, # 30 tablet, 4 Refills, Maintenance, 02/11/23 14:32:00 EDT, Tablet, [facility]/pharmacy #[id number], Partial fill upon patient request if [...] Team Personnel Name: Huma Vivar MD Position: [facility] Primary Care Physician Member Role: PCP Address: Address: [address] [place] [address] Adult [place] [address]- Name: Denise Santoro RN Position: [facility] RN Member Role: Primary Care Nurse Care Team Related Persons Name: PHILIP CHAMBERLAIN Address: [address] [address]
--- OUTSIDE RECORDS SUMMARY | 2023-07-04 15:06 | XMS_ITS | Continuity of Care Document ---
Author Name Unknown Organization [facility] Address [address] [place] [address]- Care Team Providers Care Door Slinger Name Role Phone Huma Vivar MD Primary Care Physician [facility] Date(s): 12/10/21 - 04/09/22 [facility] [address] [place], [place] [address] Attending Physician: Huma Vivar MD Allergies, Adverse [...] tetanus/diphtheria/pertussis, acel(Tdap) 01/25/14 Given 1Result Comment: [11/17/2017] 58275-569-07 2Result Comment: [11/12/2016] PER PT 3Admin Note: per pt 4Admin Note: VIS SHEET GIVEN (06/22/2011) GIVEN W/O INCIDENT 5Admin Note: PER PT Medications Daily Multi 1 tablet, By Mouth, Daily, 0 Refills, Maintenance, 07/28/15 9:10:50 Start Date: 07/28/15 Status: Ordered FLUoxetine 10 mg oral tablet 1 tablet = 10 mg, By Mouth, Daily, # 90 tablet, 0 Refills, Maintenance, 11/06/21 14:44:00 EST, Tablet, [facility] # [id number], Partial fill upon patient request if the prescription is for a schedule II opioid drug., 137.16, cm, 11/06/21 14:15:00 EST, H... Start Date: 11/06/21 Status: Ordered fluticasone 250 mcg/inh inhalation powder 1 puffs, Inhalation, 2 times a day, # 60 each, 2 Refills, Maintenance, 11/06/21 15:04:00 EST, Powder, [facility] # 302, Partial fill upon patient request if the prescription is for a schedule IIopioid drug., 137.16, cm, 11/06/21 14:15:00 EST, He... Start Date: 11/06/21 Status: Ordered ibuprofen 600 mg oral tablet 600 mg, 1, tablet, By Mouth, 3 times a day, # 90 tablet, Refills 0, Tot. Refills 0, Maintenance, 11/06/21 15:03:00 EST, Route to Pharmacy Electronically, [facility] # [id number], Partial fill upon patient [...]
--- OUTSIDE RECORDS SUMMARY | 2023-07-04 15:06 | XMS_ITS | Continuity of Care Document ---
Author Name Unknown Organization [facility] Address [address] [place] [address]- Care Team Providers Care Jackspooler Name Role Phone Huma Vivar MD Primary Care Physician [phone] Encounter [facility] [place] Date(s): 10/27/20 - 11/03/20 [facility] [address] [place], [place] [address] Encounter Diagnosis Chronic dyspnea(Discharge Diagnosis) - 10/27/20 Attending Physician: Huma Vivar MD Allergies, Adverse [...] tetanus/diphtheria/pertussis, acel(Tdap) 01/25/14 Given 1Result Comment: [11/17/2017] 24079-896-10 2Result Comment: [11/12/2016] PER PT 3Admin Note: [...] Dates Health Status Cl inical Service Informant Chronic dyspnea Discharge Diagnosis 10/27/20 Vital Signs Most recent to oldest [Reference Range]: 1 Height 137.16 cm (10/27/20 1:23 PM) Weight 54.5 kg (10/27/20 1:23 PM) Oxygen Saturation [94-100 %] 98 % (10/27/20 1:23 PM) Pulse Rate [55-90 bpm] 55 bpm (10/27/20 1:23 PM) Body Mass Index [18.5-24.99] 28.97 *H* (10/27/20 1:23 PM) Blood Pressure [90-138/55-84 mm Hg] 112/ 64mm Hg (10/27/20 1:23 PM) Temperature [96.8-100.4 DegF] 97.3 DegF (10/27/20 1:23 PM) Mode of Delivery (Oxygen) Room air (10/27/20 1:23 PM) Blood pressure sites Arm, left (10/27/20 1:23 PM) Temperature Route Temporal (10/27/20 1:23 PM) Social History Social History Type Response Smoking Status Never smoker entered on: 11/09/13 Sex
--- OUTSIDE RECORDS SUMMARY | 2023-07-04 15:06 | XMS_ITS | Continuity of Care Document ---
Author Name Unknown Organization [facility] Address [address] [place] [address]- Care Team Providers Care Foreign Language Stenographer Name Role Phone Cb ARIAS, Huma Primary Care Physician [phone] [facility]counter [facility] Date(s): 12/04/20 - 01/03/21 [facility] [address] [place], [place] [address] Allergies, Adverse Reactions, Alerts Substance Reaction Severity Status NKA Active Immunizations Given and Recorded Vaccine Date Status Refusal Reason influenza virus vaccine, inactivated 1 11/17/17 Gi catnia influenza virus vaccine, inactivated 2 11/12/16 Re corded influenza virus vaccine, inactivated 3 09/24/13 Gi catina influenza virus vaccine, inactivated 4 12/08/12 Gi catina influenza virus vaccine, inactivated 5 05/09/12 Gi catina tetanus/diphtheria/pertussis, acel(Tdap) 01/25/14 Given 1Result Comment: [11/17/2017] 46479-865-96 2Result Comment: [11/12/2016] PER PT 3Admin Note: [...] 12/05/20 11:46:00 EST, Route to Pharmacy Electronically, [facility], Partial fill upon patient request [...]
--- OUTSIDE RECORDS SUMMARY | 2023-07-04 15:06 | XMS_ITS | Continuity of Care Document ---
Author Name Unknown Organization [facility] Address [address] [place] [address]- Care Team Providers Care Communication Skills Instructor Name Role Phone Huma Vivar MD Primary Care Physician Encounter [facility] [place] Date(s): 03/22/23 - 03/29/23 [facility] [address] [place] [address]- Attending Physician: Jeffrey Ambrocio MD Referring Physician: Huma [...] tetanus/diphtheria/pertussis, acel(Tdap) 01/25/14 Given 1Result Comment: [11/17/2017] 06995-230-22 2Result Comment: [11/12/2016] PER PT 3Admin Note: [...] 10/18/22 14:21:00 EST, Powder, [facility]), Partial fill upon patient request if the prescriptionis for a schedule II opioid drug., 137.16, cm, 0... Start Date: 10/18/22 Status: Ordered meloxicam 15 mg oral tablet 1 tablet = 15 mg, By Mouth, Daily, # 30 tablet, 4 Refills, Maintenance, 02/11/23 14:32:00 EDT, Tablet, [facility]/pharmacy #[id number], Partial fill upon patient request if [...] recent to oldest [Reference Range]: 1 Height 162 cm (03/22/23 3:55 PM) Weight 55.3 kg (03/22/23 3:55 PM) Oxygen Saturation [94-100 %] 100 % (03/22/23 3:55 PM) Pulse Rate [55-90 bpm] 50 bpm *L* (03/22/23 3:55 PM) Body Mass Index [18.5-24.99 kg/m2] 21.07 kg/m2 (03/22/23 3:55 PM) Blood Pressure [90-138/55-84 mm Hg] 112/ 41mm Hg (03/22/23 3:55 PM) Social History Social History Type Response Smoking Status Never smoker entered on: 11/09/13 Sex Patient Care team information Care Team Personnel Name: Huma Vivar MD Position: [facility] Primary Care Physician Member Role: PCP Address: Address: [address] [place] [address] Adult and Pediatric Medicine [place], [place] [address] Name: Denise Santoro RN Position: [facility] RN Member Role: Primary Care Nurse Care Team Related Persons Name: PHILIP CHAMBERLAIN Address: [address] [address]
--- OUTSIDE RECORDS SUMMARY | 2023-07-04 15:06 | XMS_ITS | Continuity of Care Document ---
Author Name Unknown Organization [facility] Address [address] [place] [address]- Care Team Providers Care Electric Sign Wirer Name Role Phone Huma Vivar MD Primary Care Physician [phone] Encounter [facility] Date(s): 11/23/22 - 12/23/22 [facility] [address] [place] [address]- Allergies, Adverse Reactions, Alerts No Known Allergies [...] tetanus/diphtheria/pertussis, acel(Tdap) 01/25/14 Given 1Result Comment: [11/17/2017] 51197-435-68 2Result Comment: [11/12/2016] PER PT 3Admin Note: [...] Team Personnel Name: Huma Vivar MD Position: [facility] Primary Care Physician Member Role: PCP Address: Address: [address] [place] [address] Adult [place] [address]- Name: Dneise Santoro RN Position: S RN Member Role: Primary Care Nurse Care Team Related Persons Name: PHILIP CHAMBERLAIN Address: [address] [address]
--- OUTSIDE RECORDS SUMMARY | 2023-07-04 15:06 | XMS_ITS | Continuity of Care Document ---
Author Name Unknown Organization [facility] Address [address] [place] [address]- Care Team Providers Care Neck Cutter Name Role Phone Huma Vivar MD Primary Care Physician [phone] [place] [facility] 11/17/22 - 12/17/22 [facility] [address] [place] [address]- Attending Physician: AdmDavid dixon Admitting Physician: Admtr, Ar8 Referring Physician: Admtr, Ar8 Allergies, Adverse Reactions, Alerts No Known Allergies [...] tetanus/diphtheria/pertussis, acel(Tdap) 01/25/14 Given 1Result Comment: [11/17/2017] 39056-647-84 2Result Comment: [11/12/2016] PER PT 3Admin Note: [...] Care Physician Member Role: PCP Address: Address: [address] [place] [address] Adult [place] [address]- Name: Denise Santoro RN Position: [facility] RN Member Role: Primary Care Nurse Care Team Related Persons Name: PHILIP CHAMBERLAIN Address: [address] [address]
--- OUTSIDE RECORDS SUMMARY | 2023-07-04 15:06 | XMS_ITS | Continuity of Care Document ---
Author Name Unknown Organization [facility] Address [address] [place] [address]- Care Team Providers Care Seat Builder Name Role Phone Cb ARIAS, Huma Primary Care Physician [facility] Date(s): 11/30/20 - 12/30/20 [facility] [address] [place], [place] [address] Allergies, Adverse Reactions, Alerts Substance Reaction [...] tetanus/diphtheria/pertussis, acel(Tdap) 01/25/14 Given 1Result Comment: [11/17/2017] 71747-795-16 2Result Comment: [11/12/2016] PER PT 3Admin Note: [...] 12/05/20 11:46:00 EST, Route to Pharmacy Electronically, [facility], Partial fill upon patient request [...]
--- OUTSIDE RECORDS SUMMARY | 2023-07-04 15:06 | XMS_ITS | Continuity of Care Document ---
Author Name Unknown Organization [facility] Address [address] [place] [address]- Care Team Providers Care Core Composer Feeder Name Role Phone Huma Vivar MD Primary Care Physician [phone] Encounter [facility] Date(s): 12/05/20 - 02/01/21 [facility] [address] [place], [place] [address] Attending Physician: Huma Vivar MD Allergies, Adverse [...] tetanus/diphtheria/pertussis, acel(Tdap) 01/25/14 Given 1Result Comment: [11/17/2017] 20663-882-27 2Result Comment: [11/12/2016] PER PT 3Admin Note: [...]
--- OUTSIDE RECORDS SUMMARY | 2023-07-04 15:06 | XMS_ITS | Continuity of Care Document ---
Author Name Unknown Organization [facility] Address [address] [place] [address]- Care Team Providers Care Physician Office Clin Asst Name Role Phone Huma Vivar MD Primary Care Physician Encounter [facility] [place] Date(s): 11/05/22 - 12/05/22 [facility] [address] [place] [address]- Attending Physician: Vickie Junior MD, V Referring Physician: Huma Vivar MD Allergies, Adverse [...] tetanus/diphtheria/pertussis, acel(Tdap) 01/25/14 Given 1Result Comment: [11/17/2017] 31404-820-51 2Result Comment: [11/12/2016] PER PT 3Admin Note: [...] Team Personnel Name: Huma Vivar MD Position: [facility] Primary Care Physician Member Role: PCP Address: Address: [address] [place] [address] Adult [place] [address]- Name: Denise Santoro RN Position: [facility] RN Member Role: Primary Care Nurse Care Team Related Persons Name: PHILIP CHAMBERLAIN Address: [address] [address]
--- OUTSIDE RECORDS SUMMARY | 2023-07-04 15:06 | XMS_ITS | Continuity of Care Document ---
Author Name Unknown Organization [facility] Address [address] [place] [address]- Care Team Providers Care Manager Of Tires Sales Name Role Phone Huma Vivar MD Primary Care Physician Encounter [facility] Date(s): 02/04/20 - 02/11/20 [facility] [address] [place] [address]- [facility] Encounter Diagnosis Annual physical exam(Discharge Diagnosis) - 02/04/20 Fatigue(Discharge Diagnosis) - 02/04/20 Lumbar radiculitis(Discharge Diagnosis) - 02/04/20 Attending Physician: Huma Vivar MD Allergies, Adverse [...] tetanus/diphtheria/pertussis, acel(Tdap) 01/25/14 Given 1Result Comment: [11/17/2017] 05185-208-56 2Result Comment: [11/12/2016] PER PT 3Admin Note: per pt 4Admin Note: VIS SHEET GIVEN (06/22/2011) GIVEN W/O INCIDENT 5Admin Note: PER PT Medications Daily Multi 1 tablet, By Mouth, Daily, 0 Refills, Maintenance, 07/28/15 9:10:50 Start Date: 07/28/15 Status: Ordered MiraLax oral powder for reconstitution See Instructions, 17 Gm By Mouth Daily, # 527 Gm, 1 Refills, Maintenance, 03/14/19 13:03:05 EDT, REC Powder, 17 Gm By Mouth Daily Start Date: 03/14/19 Status: Ordered NuLYTELY Lemon [place] oral powder for reconstitution 240 mL, By Mouth, Every 15 minutes, # 4,000 mL, 0 Refills, Maintenance, 03/14/19 13:02:32 EDT Start Date: 03/14/19 Status: Ordered Problem List Condition Effective Dates Status Health Status Inform ant History of bilateral breast implants(Confirmed) Active Lumbar radiculitis(Confirmed) Active Myofascial pain(Confirmed) Active Urinary incontinence(Confirmed) Active Diagnosis Diagnosis Type Effective Dates Health Status Clinical Service Informant Annual physical exam Discharge Diagnosis 02/04/20 Fatigue Discharge Diagnosis 02/04/20 Lumbar radiculitis Discharge Diagnosis 02/04/20 Vital Signs Most recent to oldest [Reference Range]: 1 Height 137.16 cm (02/04/20 10:15 AM) Weight 55.1 kg (02/04/20 10:15 AM) Oxygen Saturation [94-100 %] 99 % (02/04/20 10:15 AM) Pulse Rate [55-90 bpm] 82 bpm (02/04/20 10:15 AM) Body Mass Index [18.5-24.99] 29.29 *H* (02/04/20 10:15 AM) Blood Pressure [90-138/55-84 mm Hg] 106/ 60mm Hg (02/04/20 10:15 AM) Blood pressure sites Arm, left (02/04/20 10:15 AM) Weight Obtained Via Standing scale (02/04/20 10:15 AM) Social History Social History Type Response Smoking Status Never smoker entered on: 11/09/13 Sex
--- OUTSIDE RECORDS SUMMARY | 2023-07-04 15:06 | XMS_ITS | Continuity of Care Document ---
Author Name Unknown Organization [facility] Address [address] [place] [address]- Care Team Providers Care Print Production Coordinator Name Role Phone Huma Vivar MD Primary Care Physician [facility]counter [facility] Date(s): 10/27/20 - 12/18/20 [facility] [address] [place], [place] [address] Attending Physician: Huma Vivar MD [...] tetanus/diphtheria/pertussis, acel(Tdap) 01/25/14 Given 1Result Comment: [11/17/2017] 95018-145-12 2Result Comment: [11/12/2016] PER PT 3Admin Note: [...] 12/05/20 11:46:00 EST, Route to Pharmacy Electronically, [facility], Partial fill upon patient request [...]
--- OUTSIDE RECORDS SUMMARY | 2023-07-04 15:06 | XMS_ITS | Continuity of Care Document ---
Author Name Unknown Organization [facility] Address [address] [place] [address]- Care Team Providers Care Refinery Operator Polymerization Plant Name Role Phone Huma Vivar MD Primary Care Physician Encounter [facility] [place] Date(s): 06/16/23 - 06/23/23 [facility] [address] [place] [address]- Attending Physician: Jeffrey Ambrocio MD Admitting Physician: [...] tetanus/diphtheria/pertussis, acel(Tdap) 01/25/14 Given 1Result Comment: [11/17/2017] 37691-309-97 2Result Comment: [11/12/2016] PER PT 3Admin Note: [...] 4 Refills, Maintenance, 02/11/23 14:32:00 EDT, Tablet, [facility]/pharmacy #[id number], Partial fill upon patient request if [...] List Condition Confirmation Course Effective Dates Status [facility] Informant History of bilateral breast implants Confirmed Active Lumbar radiculitis Confirmed Active Myofascial pain Confirmed Active Sacroiliac joint pain Confirmed Active Urinary incontinence Confirmed Active Vital Signs Most recent to oldest [Reference Range]: 1 Height 162 cm (06/16/23 3:02 PM) Oxygen Saturation [94-100 %] 99 % (06/16/23 3:02 PM) Pulse Rate [55-90 bpm] 57 bpm (06/16/23 3:02 PM) Blood Pressure [90-138/55-84 mm Hg] 108/ 64mm Hg (06/16/23 3:02 PM) Mode of Delivery (Oxygen) Room air (06/16/23 3:02 PM) Blood pressure sites Arm, left (06/16/23 3:02 PM) Dry Weight 54.54 kg (06/16/23 3:02 PM) Dry Weight Obtained Via Patient/family s tated (06/16/23 3:02 PM) Social History Social History Type Response Smoking Status Never smoker entered on: 11/09/13 Sex Note * Rigo Jade: PERFORM, SIGN, VERIFY Event Display: Patient Education/Instruction Authored Date: [id number] [facility] *[facility] [address] Clinical Summary Name NORBERT CHAMBERLAIN Age 52 Years 1970 PCP Huma Vivar MD PCP Visit Date 06/16/2023 14:40:00 Additional Instructions: Scheduled Appointments?? Future Appointments ?*[facility]Management ?[address]??[place],??[place],??[address] ?Phone:??[phone]?Fax:??-- ?Appt. Date:??07/12/2023?3:10 PM ?Scheduled Provider:??Mariano Up MD Follow-Up Instructions ?? With: Address: When: Lolly MD, Jeffrey A Within 3 months Comments: No studies Diagnosis Medications: Please continue your medications until [...] twice a day. Refills: 4. Next Dose: Lorazepam (Ativan 0.5 mg oral tablet) TAKE 1 TABLET AT BEDTIME AND 1 TABLET 1 HOUR PRIOR TO PROCEDURE. Refills: 0. Next Dose: Meloxicam (meloxicam 15 mg oral tablet) 1 tab(s) Oral Daily. Refills: 4. Next Dose: Multivitamin With Minerals (Daily Multi) 1 tab(s) Oral Daily. Next Dose: Omeprazole (omeprazole 40 mg oral enteric coated capsule) 1 capsule Oral Daily. take daily with meloxicam. Refills: 2. Next Dose: PEG Electrolyte Solution (MiraLax) 17 gram Oral Daily. Next Dose: Allergy Info:?? NKA Medications Given This Visit Future Orders ?No future orders Vital Signs Height 162 cm Weight BMI Blood Pressure 108 mm Hg/64 mm Hg Temperature Pulse Rate 57 bpm Respiratory Rate 02 Sat Mode of Delivery 99 %/Room air You can now view a summary of your hospital visit from the comfort of your home through a free online portal called [employer]. Mindscape is a website that allows you to securely view your medical information including discharge summary, medications and follow-up visits. ??You can alsosend a secure electronic message to your doctor???s office to request appointments, renew medications or just ask a question. You can enroll at [email or web address] or register during your next office visit. [...] primary care provider, you may find a [facility] provider by calling [facility] [employer] at [phone]. For information about the plan of care [...] Name: Huma Vivar MD Position: [facility] Physician - Primary Care Member Role: PCP Address: Address: [address] [place] [address] [place] [address]- Name: Denise Santoro RN Position: [facility] RN Member Role: Primary Care Nurse Care Team Related Persons Name: PHILIP CHAMBERLAIN Address: [address] [address]
--- OUTSIDE RECORDS SUMMARY | 2023-07-04 15:06 | XMS_ITS | Continuity of Care Document ---
Author Name Unknown Organization [facility] Address [address] [place] [address]- Care Team Providers Care Wanigan Clerk Name Role Phone Cb ARIAS, Huma Primary Care Physician [place] [facility] [place] 01/02/21 - 02/01/21 [facility] [address] [place], [place] [address] Attending Physician: David Schmidt Admitting Physician: David Schmidt Referring Physician: AdmtrDavid Allergies, Adverse Reactions, Alerts Substance Reaction Severity [...] tetanus/diphtheria/pertussis, acel(Tdap) 01/25/14 Given 1Result Comment: [11/17/2017] 73760-766-85 2Result Comment: [11/12/2016] PER PT 3Admin Note: [...]
--- OUTSIDE RECORDS SUMMARY | 2023-07-04 15:06 | XMS_ITS | Continuity of Care Document ---
Author Name Unknown Organization [facility] Address [address] [place] [address]- Care Team Providers Care Pocket Closer Name Role Phone Huma Vivar MD Primary Care Physician Encounter [facility] [place] Date(s): 12/30/22 - 01/29/23 [facility] [address] [place] [address]- Allergies, Adverse Reactions, Alerts No Known Allergies [...] tetanus/diphtheria/pertussis, acel(Tdap) 01/25/14 Given 1Result Comment: [11/17/2017] 35462-916-94 2Result Comment: [11/12/2016] PER PT 3Admin Note: [...] Team Personnel Name: Huma Vivar MD Position: [facility] Primary Care Physician Member Role: PCP Address: Address: [address] [place] [address] and [place] [address]- [place] Name: Denise Santoro RN Position: S RN Member Role: Primary Care Nurse Care Team Related Persons Name: PHILIP CHAMBERLAIN Address: [address] [address]
--- OUTSIDE RECORDS SUMMARY | 2023-07-04 15:06 | XMS_ITS | Continuity of Care Document ---
Author Name Unknown Organization [facility] Address [address] [place] [address]- Care Team Providers Care Seal Skinner Name Role Phone Huma Vivar MD Primary Care Physician En[place] [facility] [place] [id number] Date(s): 12/03/22 - 01/29/23 [facility] [address] [place] [address]- Attending Physician: Jeffrey Ambrocio MD Admitting Physician: [...] tetanus/diphtheria/pertussis, acel(Tdap) 01/25/14 Given 1Result Comment: [11/17/2017] [id number] 2Result Comment: [11/12/2016] PER PT 3Admin Note: [...] Team Personnel Name: Huma Vivar MD Position: [facility] Primary Care Physician Member Role: PCP Address: Address: [address] [place] [address] Adult [place] [address]- Name: Denise Santoro RN Position: [facility] RN Member Role: Primary Care Nurse Care Team Related Persons Name: PHILIP CHAMBERLAIN Address: [address] [address]
--- OUTSIDE RECORDS SUMMARY | 2023-07-04 15:06 | XMS_ITS | Continuity of Care Document ---
Author Name Unknown Organization [facility] Address [address] [place] [address]- Care Team Providers Care Mail Clerk Bills Name Role Phone Cb ARIAS, Huma Primary Care Physician [place] [facility] [place] 02/09/21 - 03/11/21 [facility] [address] [place], [place] [address] Attending Physician: David Schmidt Admitting Physician: David [...] tetanus/diphtheria/pertussis, acel(Tdap) 01/25/14 Given 1Result Comment: [11/17/2017] 83260-678-00 2Result Comment: [11/12/2016] PER PT 3Admin Note: [...]
--- OUTSIDE RECORDS SUMMARY | 2023-07-04 15:06 | XMS_ITS | Continuity of Care Document ---
Author Name Unknown Organization [facility] Address [address] [place] [address]- Care Team Providers Care Reading Aide Name Role Phone Huma Vivar MD Primary Care Physician [place] [facility] [place]23 [place] 05/[place]/23 [facility] [address] [place] [address]- Attending Physician: David Schmidt Admitting Physician: David Schmidt Referring Physician: AdmDavid dixon Allergies, Adverse Reactions, Alerts No Known Allergies [...] tetanus/diphtheria/pertussis, acel(Tdap) 01/25/14 Given 1Result Comment: [11/17/2017] 49075-934-61 2Result Comment: [11/12/2016] PER PT 3Admin Note: [...] 4 Refills, Maintenance, 02/11/23 14:32:00 EDT, Tablet, [id number], Partial fill upon patient request [...] List Condition Confirmation Course Effective Dates Status [facility] Informant History of bilateral breast implants Confirmed Active Lumbar radiculitis Confirmed Active Myofascial pain Confirmed Active Sacroiliac joint pain Confirmed Active Urinary incontinence Confirmed Active Social History Social History Type Response Smoking Status Never smoker entered on: 11/09/13 Sex Patient Care team information Care Team Personnel Name: Huma Vivar MD Position: [facility] Physician - Primary Care Member Role: PCP Address: Address: [address] [place] [address] Adult [place] [address]- Name: Denise Santoro RN Position: [facility] RN Member Role: Primary Care Nurse Care Team Related Persons Name: PHILIP CHAMBERLAIN Address: [address] [address]
--- OUTSIDE RECORDS SUMMARY | 2023-07-04 15:06 | XMS_ITS | Continuity of Care Document ---
Author Name Unknown Organization [facility] Address [address] [place] [address]- Care Team Providers Care Political Researcher Name Role Phone Huma Vivar MD Primary Care Physician Encounter [facility] [place] Date(s): 12/31/22 - 01/30/23 [facility] [address] [place] [address]- Attending Physician: David Schmidt Admitting Physician: David [...] tetanus/diphtheria/pertussis, acel(Tdap) 01/25/14 Given 1Result Comment: [11/17/2017] [id number] 2Result Comment: [11/12/2016] PER PT 3Admin Note: [...] Team Personnel Name: Huma Vivar MD Position: [facility] Primary Care Physician Member Role: PCP Address: Address: [address] [place] [address] Adult [place] [address]- Name: Denise Santoro RN Position: [facility] RN Member Role: Primary Care Nurse Care Team Related Persons Name: BULMARO PHILIP Address: [address] [address]
--- OUTSIDE RECORDS SUMMARY | 2023-07-04 15:06 | XMS_ITS | Continuity of Care Document ---
Author Name Unknown Organization [facility] Address [address] [place] [address]- Care Team Providers Care Director Toxicology Name Role Phone Huma Vivar MD Primary Care Physician En[place] [facility] [place] Date(s): 11/11/20 - 03/11/21 [facility] [address] [place], [place] [address] Attending Physician: Huma Vivar MD Allergies, [...] tetanus/diphtheria/pertussis, acel(Tdap) 01/25/14 Given 1Result Comment: [11/17/2017] 59728-388-13 2Result Comment: [11/12/2016] PER PT 3Admin Note: [...]
--- OUTSIDE RECORDS SUMMARY | 2023-07-04 15:06 | XMS_ITS | Continuity of Care Document ---
Author Name Unknown Organization [facility] Address [address] [place] [address]- Care Team Providers Care Heat Treater Head Name Role Phone Cb ARIAS, Huma Primary Care Physician Encounter [facility] Date(s): 11/10/21 - 12/10/21 [facility] [address] [place] [address]- Allergies, Adverse Reactions, Alerts No Known Allergies [...] tetanus/diphtheria/pertussis, acel(Tdap) 01/25/14 Given 1Result Comment: [11/17/2017] 50375-504-67 2Result Comment: [11/12/2016] PER PT 3Admin Note: per pt 4Admin Note: VIS SHEET GIVEN (06/22/2011) GIVEN W/O INCIDENT 5Admin Note: PER PT Medications Daily Multi 1 tablet, By Mouth, Daily, 0 Refills, Maintenance, 07/28/15 9:10:50 Start Date: 07/28/15 Status: Ordered FLUoxetine 10 mg oral tablet 1 tablet = 10 mg, By Mouth, Daily, # 90 tablet, 0 Refills, Maintenance, 11/06/21 14:44:00 EST, Tablet, [facility] # [id number], Partial fill upon patient request if the prescription is for a schedule II opioid drug., 137.16, cm, 11/06/21 14:15:00 EST, H... Start Date: 11/06/21 Status: Ordered fluticasone 250 mcg/inh inhalation powder 1 puffs, Inhalation, 2 times a day, # 60 each, 2 Refills, Maintenance, 11/06/21 15:04:00 EST, Powder, [facility] # [facility], Partial fill upon patient request if the prescription is for a schedule IIopioid drug., 137.16, cm, 11/06/21 14:15:00 EST, He... Start Date: 11/06/21 Status: Ordered ibuprofen 600 mg oral tablet 600 mg, 1, tablet, By Mouth, 3 times a day, # 90 tablet, Refills 0, Tot. Refills 0, Maintenance, 11/06/21 15:03:00 EST, Route to Pharmacy Electronically, [facility] # [id number], Partial fill upon patient [...]
--- OUTSIDE RECORDS SUMMARY | 2023-07-04 15:06 | XMS_ITS | Continuity of Care Document ---
Author Name Unknown Organization [facility] Address [address] [place] [address]- Care Team Providers Care Shopper Name Role Phone Huma Vivar MD Primary Care Physician [phone] [facility] [place] [facility] R [id number] Date(s): 11/01/22 - 12/23/22 [facility] [address] [place] [address]- Attending Physician: Jeffrey Ambrocio MD Admitting Physician: [...] tetanus/diphtheria/pertussis, acel(Tdap) 01/25/14 Given 1Result Comment: [11/17/2017] [id number] 2Result Comment: [11/12/2016] PER PT 3Admin Note: [...] Personnel Name: Huma Vivar MD Position: [facility] Primary Care Physician Member Role: PCP Address: Address: [address] [place] [address] Adult [place] [address]- Name: Denise Santoro RN Position: [facility] RN Member Role: Primary Care Nurse Care Team Related Persons Name: PHILIP CHAMBERLAIN Address: [address] [address]
--- OUTSIDE RECORDS SUMMARY | 2023-07-04 15:06 | XMS_ITS | Continuity of Care Document ---
Author Name Unknown Organization [facility] Address [address] [place] [address]- Care Team Providers Care Lens And Frames Prescription Clerk Name Role Phone Huma Vivar MD Primary Care Physician [place] [facility] [place] 08[place]03[place]22 - 08/10/22 [facility] [address] [place] [address]- Attending Physician: Jeffrey Ambrocio MD Admitting Physician: [...] tetanus/diphtheria/pertussis, acel(Tdap) 01/25/14 Given 1Result Comment: [11/17/2017] [id number] 2Result Comment: [11/12/2016] PER PT 3Admin Note: [...] 0 Refills, Maintenance, 11/06/21 14:44:00 EST, Tablet, [facility], Partial fill upon patient request if the prescription is for a schedule II opioid drug., 137.16, cm, 11/06/21 14:15:00 EST, H... Start Date: 11/06/21 Status: Ordered fluticasone 250 mcg/inh inhalation powder 1 puffs, Inhalation, 2 times a day, # 60 each, 2 Refills, Maintenance, 11/06/21 15:04:00 EST, Powder, [facility], Partial fill upon patient request if the prescription is for a schedule IIopioid drug., 137.16, cm, 11/06/21 14:15:00 EST, He... Start Date: 11/06/21 Status: Ordered ibuprofen 600 mg oral tablet 600 mg, 1, tablet, By Mouth, 3 times a day, # 90 tablet, Refills 0, Tot. Refills 0, Maintenance, 11/06/21 15:03:00 EST, Route to Pharmacy Electronically, [facility], Partial fill upon [...] Active Myofascial pain(Confirmed) Active Urinary incontinence(Confirmed) Active Vital Signs Most recent to oldest [Reference Range]: 1 Height 137.16 cm (08/03/22 4:28 PM) Weight 55.79 kg (08/03/22 4:28 PM) Oxygen Saturation [94-100 %] 95 % (08/03/22 4:28 PM) Pulse Rate [55-90 bpm] 47 bpm *L* (08/03/22 4:28 PM) Body Mass Index [18.5-24.99] 29.66 *H* (08/03/22 4:28 PM) Blood Pressure [90-138/55-84 mm Hg] 100/ 58mm Hg (08/03/22 4:28 PM) Mode of Delivery (Oxygen) Room air (08/03/22 4:28 PM) Blood pressure sites Arm, right (08/03/22 4:28 PM) Social History Social History Type Response Smoking Status Never smoker entered on: 11/09/13 Sex Care Team Personnel Name: Huma Vivar MD Address: [address] Adult and Pediatric Medicine [place], [place] [address]
--- OUTSIDE RECORDS SUMMARY | 2023-07-04 15:06 | XMS_ITS | Continuity of Care Document ---
Author Name Unknown Organization [facility] [place] [facility] Address [address] [place] [address]- Care Team Providers Care Cracker Sprayer Name Role Phone Huma Vivar MD Primary Care Physician [phone] Encounter [facility] Date(s): 03/10/22 - 04/09/[address] [facility] [place] [facility] [address] [place] [address]- Attending Physician: David Schmidt Admitting Physician: David [...] tetanus/diphtheria/pertussis, acel(Tdap) 01/25/14 Given 1Result Comment: [11/17/2017] 37170-658-12 2Result Comment: [11/12/2016] PER PT 3Admin Note: per pt 4Admin Note: VIS SHEET GIVEN (06/22/2011) GIVEN W/O INCIDENT 5Admin Note: PER PT Medications Daily Multi 1 tablet, By Mouth, Daily, 0 Refills, Maintenance, 07/28/15 9:10:50 Start Date: 07/28/15 Status: Ordered FLUoxetine 10 mg oral tablet 1 tablet = 10 mg, By Mouth, Daily, # 90 tablet, 0 Refills, Maintenance, 11/06/21 14:44:00 EST, Tablet, [facility], Partial fill upon patient request if the prescription is for a schedule II opioid drug., 137.16, cm, 11/06/21 14:15:00 EST, H... Start Date: 11/06/21 Status: Ordered fluticasone 250 mcg/inh inhalation powder 1 puffs, Inhalation, 2 times a day, # 60 each, 2 Refills, Maintenance, 11/06/21 15:04:00 EST, Powder, [facility], Partial fill upon patient request if the prescription is for a schedule IIopioid drug., 137.16, cm, 11/06/21 14:15:00 EST, He... Start Date: 11/06/21 Status: Ordered ibuprofen 600 mg oral tablet 600 mg, 1, tablet, By Mouth, 3 times a day, # 90 tablet, Refills 0, Tot. Refills 0, Maintenance, 11/06/21 15:03:00 EST, Route to Pharmacy Electronically, [facility] # [facility], Partial fill upon patient [...]
--- OUTSIDE RECORDS SUMMARY | 2023-07-04 15:06 | XMS_ITS | Continuity of Care Document ---
Author Name Unknown Organization [facility] Address [address] [place] [address]- Care Team Providers Care Fabricator Industrial Furnace Name Role Phone Huma Vivar MD Primary Care Physician [place] [facility] [place] 12[place]22 - 01/04/23 [facility] [address] [place] [address]- Attending Physician: Jeffrey Ambrocio MD Referring Physician: [...] tetanus/diphtheria/pertussis, acel(Tdap) 01/25/14 Given 1Result Comment: [11/17/2017] [id number] 2Result Comment: [11/12/2016] PER PT 3Admin Note: [...] oldest [Reference Range]: 1 Height 162 cm (12/28/22 10:09 AM) Weight 56.8 kg (12/28/22 10:09 AM) Oxygen Saturation [94-100 %] 100 % (12/28/22 10:09 AM) Pulse Rate [55-90 bpm] 57 bpm (12/28/22 10:09 AM) Body Mass Index [18.5-24.99 kg/m2] 21.64 kg/m2 (12/28/22 10:09 AM) Blood Pressure [90-138/55-84 mm Hg] 130/ 87mm Hg (12/28/22 10:09 AM) Blood pressure sites Arm, left (12/28/22 10:09 AM) Social History Social History Type Response Smoking Status Never smoker entered on: 11/09/13 Sex Note * Hannah Mireles: PERFORM, SIGN, VERIFY Event Display: Patient Education/Instruction Authored Date: [id number] [facility] *[facility] Clinical Summary Name NORBERT CHAMBERLAIN Age 52 Years 1970 PCP Huma Vivar MD PCP Visit Date 12/28/2022 10:00:00 Additional Instructions: Scheduled Appointments?? Future Appointments ?*[facility]Lab[address] ?Phone:??--?Fax:??-- ?Appt. Date:??12/30/2022?2:00 PM ?Scheduled Provider:??Ultrasound Room 1 [facility] ?*[facility] ?Phone:??--?Fax:??-- ?Appt. Date:??12/30/2022?3:00 PM ?Scheduled Provider:??[facility] Nurse ?*[facility] [address]??[place],??[place],??[address] ?Phone:??--?Fax:??-- ?Appt. Date:??02/11/2023?2:00 PM ?Scheduled Provider:??Huma Vivar MD ?*[facility] ?[address] ?[place],??[place],??[address] ?Phone:??--?Fax:??-- ?Appt. Date:??03/22/2023?4:00 PM ?Scheduled Provider:??Jeffrey Ambrocio MD Follow-Up Instructions ?? Diagnosis Medications: Please continue your medications until treatment is completed or stopped by your provider. Discuss any questions related to medications with your provider. Medications to Continue with No Changes These medications were not printed or sent to your pharmacy Amoxicillin (amoxicillin 500 mg oral capsule) 1 capsule Oral 3 times a day for 5 Days. for dental surgery done yesterday. Next Dose: Durable Medical Equipment (Compression Stockings) surgical, calf [...] orders Vital Signs Height 162 cm Weight 56.8 kg BMI 21.64 kg/m2 Blood Pressure 130 mm Hg/87 mm Hg Temperature Pulse Rate 57 bpm Respiratory Rate 02 Sat Mode of Delivery 100 %/ You can now view a summary of your hospital visit from the comfort of your home through a free online portal called Pinnatta. Pinnatta is a website that allows you to securely view your medical information including discharge summary, medications and follow-up visits. ??You can alsosend a secure electronic message to your doctor???s office to request appointments, renew medications or just ask a question. You can enroll at [email or web address] or register during your next office [...] primary care provider, you may find a [facility] provider by calling [facility] Link at [phone]. For information about the plan of care including goals and instructions for your diagnosis, please see the patient education orders section of this document. Patient Education Materials?? The content of this educational material or handout may have been modified, supplemented, or adapted from its original content and format to support your individualized medical care. * Hannah Mireles: PERFORM, SIGN, VERIFY Event Display: Patient Education/Instruction Authored Date: [id number] [facility] *[facility] Clinical Summary Name NORBERT CHAMBERLAIN Age 52 Years 1970 PCP Huma Vivar MD PCP Visit Date 12/28/2022 10:00:00 Additional Instructions: Scheduled Appointments?? Future Appointments ?*[facility] ?Phone:??--?Fax:??-- ?Appt. Date:??12/30/2022?2:00 PM ?Scheduled Provider:??Ultrasound Room 1 [facility] ?*[facility] ?Phone:??--?Fax:??-- ?Appt. Date:??12/30/2022?3:00 PM ?Scheduled Provider:??[facility] Nurse ?*[facility] [address]??[place],??[place],??[address] ?Phone:??--?Fax:??-- ?Appt. Date:??02/11/2023?2:00 PM ?Scheduled Provider:??Huma Vivar MD ?*[place] [address] ?[place],??[place],??[address] ?Phone:??--?Fax:??-- ?Appt. Date:??03/22/2023?4:00 PM ?Scheduled Provider:??Jeffrey Ambrocio MD Follow-Up Instructions ?? Diagnosis Medications: Please continue your medications until treatment is completed or stopped by your provider. Discuss any questions related to medications with your provider. Medications to Continue with No Changes These medications were not printed or sent to your pharmacy Amoxicillin (amoxicillin 500 mg oral capsule) 1 capsule Oral 3 times a day for 5 Days. for dental surgery done yesterday. Next Dose: Durable Medical Equipment (Compression Stockings) surgical, calf [...] orders Vital Signs Height 162 cm Weight 56.8 kg BMI 21.64 kg/m2 Blood Pressure 130 mm Hg/87 mm Hg Temperature Pulse Rate 57 bpm Respiratory Rate 02 Sat Mode of Delivery 100 %/ You can now view a summary of your hospital visit from the comfort of your home through a free online portal called Pinnatta. Pinnatta is a website that allows you to securely view your medical information including discharge summary, medications and follow-up visits. ??You can alsosend a secure electronic message to your doctor???s office to request appointments, renew medications or just ask a question. You can enroll at [email or web address] or register during your next office [...] primary care provider, you may find a [facility] provider by calling [facility] at [phone]. For information about the plan of care [...] Team Personnel Name: Huma Vivar MD Position: [facility] Primary Care Physician Member Role: PCP Address: Address: [address] [place] [address] Adult [place] [address]- Name: Denise Santoro RN Position: [facility] RN Member Role: Primary Care Nurse Care Team Related Persons Name: PHILIP CHAMBERLAIN Address: [address] [address]
--- OUTSIDE RECORDS SUMMARY | 2023-07-04 15:06 | XMS_ITS | Continuity of Care Document ---
Author Name Unknown Organization [facility] Address [address] [place] [address]- Care Team Providers Care Ux Architect Name Role Phone Huma Vivar MD Primary Care Physician Encounter [facility] [place] Date(s): 04/07/23 - 05/26/23 [facility] [address] [place] [address]- Attending Physician: Jeffrey Ambrocio MD Referring Physician: [...] tetanus/diphtheria/pertussis, acel(Tdap) 01/25/14 Given 1Result Comment: [11/17/2017] 34564-461-16 2Result Comment: [11/12/2016] PER PT 3Admin Note: [...] 10/18/22 14:21:00 EST, Powder, [facility] Partial fill upon patient request if the prescriptionis for a schedule II opioid drug., 137.16, cm, 0... Start Date: 10/18/22 Status: Ordered meloxicam 15 mg oral tablet 1 tablet = 15 mg, By Mouth, Daily, # 30 tablet, 4 Refills, Maintenance, 02/11/23 14:32:00 EDT, Tablet, [facility] #[id number], Partial fill upon patient request [...] Team Personnel Name: Huma Vivar MD Position: [facility] Physician - Primary Care Member Role: PCP Address: Address: [address] [place] [address] Adult [place] [address]- Name: Denise Santoro RN Position: [facility] RN Member Role: Primary Care Nurse Care Team Related Persons Name: PHILIP CHAMBERLAIN Address: [address] [address]
--- OUTSIDE RECORDS SUMMARY | 2023-07-04 15:06 | XMS_ITS | Continuity of Care Document ---
Author Name Unknown Organization [facility] Address [address] [place] [address]- Care Team Providers Care Sewage Disposal Engineer Name Role Phone Huma Vivar MD Primary Care Physician [phone] [id number] Date(s): 02/14/23 - 05/19/23 [facility] [address] [place], [place] [address] [place] Attending Physician: Huma Vivar MD Allergies, Adverse [...] tetanus/diphtheria/pertussis, acel(Tdap) 01/25/14 Given 1Result Comment: [11/17/2017] 53227-353-65 2Result Comment: [11/12/2016] PER PT 3Admin Note: [...] 10/18/22 14:21:00 EST, Powder, [facility] Partial fill upon patient request if the prescriptionis for a schedule II opioid drug., 137.16, cm, 0... Start Date: 10/18/22 Status: Ordered meloxicam 15 mg oral tablet 1 tablet = 15 mg, By Mouth, Daily, # 30 tablet, 4 Refills, Maintenance, 02/11/23 14:32:00 EDT, Tablet, [facility] #[id number], Partial fill upon patient request [...] Team Personnel Name: Huma Vivar MD Position: [facility] Physician - Primary Care Member Role: PCP Address: Address: [address] [place] [address] Adult [place] [address]- Name: Denise Santoro RN Position: [facility] RN Member Role: Primary Care Nurse Care Team Related Persons Name: PHILIP CHAMBERLAIN Address: [address] [place] [address] [address]
--- OUTSIDE RECORDS SUMMARY | 2023-07-04 15:06 | XMS_ITS | Continuity of Care Document ---
Author Name Unknown Organization [facility] Address [address] [place] [address]- Care Team Providers Care Inside Upholsterer Name Role Phone Huma Vivar MD Primary Care Physician [phone] Encounter [facility] [place] Date(s): 04/19/23 - 05/19/23 [facility] [address] [place], [place] [address] Attending Physician: David Schmidt Admitting Physician: David [...] tetanus/diphtheria/pertussis, acel(Tdap) 01/25/14 Given 1Result Comment: [11/17/2017] 24553-058-27 2Result Comment: [11/12/2016] PER PT 3Admin Note: [...] List Condition Confirmation Course Effective Dates Status [facility] at In[facility]ant History of bilateral breast implants Confirmed Active Lumbar radiculitis Confirmed Active Myofascial pain Confirmed Active Sacroiliac joint pain Confirmed Active Urinary incontinence Confirmed Active Social History Social History Type Response Smoking Status Never smoker entered on: 11/09/13 Sex EKG study * Event Display: EKG Authored Date: Laboratory * Event Display: Non BH Lab Results Authored Date: * Event Display: Non BH Lab Results Authored Date: * Event Display: Non BH Lab Results Authored Date: * Event Display: Non BH Lab Results Authored Date: Radiology * Event Display: MRI Ankle/Foot, Non- BH Authored Date: * Event Display: CT Scan Ankle/Foot, Non- BH Authored Date: * Melodie Hill: PERFORM Event Display: Radiology Results Scanned Authored Date: MG Breast Views * Event Display: MM Mammogram Authored Date: * Event Display: MM Mammogram Authored Date: * Event Display: MM Mammogram Authored Date: * Event Display: MM Mammogram, Non- BH Authored Date: * Event Display: MM Mammogram, Non- BH Authored Date: * Event Display: MM Mammogram, Non- BH Authored Date: * Event Display: MM Mammogram, Non- BH Authored Date: Patient Care team information Care Team Personnel Name: Huma Vivar MD Position: [facility] Physician - Primary Care Member Role: PCP Address: Address: [address] [place] [address] Adult [place] [address]- Name: Denise Santoro RN Position: S RN Member Role: Primary Care Nurse Care Team Related Persons Name: PHILIP CHAMBERLAIN Address: [address] [address]
--- OUTSIDE RECORDS SUMMARY | 2023-07-04 15:06 | XMS_ITS | Continuity of Care Document ---
Author Name Unknown Organization [facility] Address [address] [place] [address]- Care Team Providers Care Mussel Farmer Name Role Phone Cb ARIAS, Huma Primary Care Physician [phone] Encounter [facility] Date(s): 08/05/22 - 09/04/22 [facility] [address] [place] [address]- Allergies, Adverse Reactions, Alerts No Known Allergies Immunizations Given and Recorded Vaccine Date Status Refusal Reason Influenza Virus Vaccine (oldterm) 10/28/21 Recorde d influenza virus vaccine, inactivated 1 11/17/17 Gi catina influenza virus vaccine, inactivated 2 11/12/16 Re corded influenza virus vaccine, inactivated 3 09/24/13 Gi catina influenza virus vaccine, inactivated 4 12/08/12 Gi catina influenza virus vaccine, inactivated 5 05/09/12 Gi catian tetanus/diphtheria/pertussis, acel(Tdap) 01/25/14 Given 1Result Comment: [11/17/2017] 05460-119-22 2Result Comment: [11/12/2016] PER PT 3Admin Note: [...] 0 Refills, Maintenance, 11/06/21 14:44:00 EST, Tablet, [id number], Partial fill upon patient request if the prescription is for a schedule II opioid drug., 137.16, cm, 11/06/21 14:15:00 EST, H... Start Date: 11/06/21 Status: Ordered fluticasone 250 mcg/inh inhalation powder 1 puffs, Inhalation, 2 times a day, # 60 each, 2 Refills, Maintenance, 11/06/21 15:04:00 EST, Powder, [facility], Partial fill upon patient request if the prescription is for a schedule IIopioid drug., 137.16, cm, 11/06/21 14:15:00 EST, He... Start Date: 11/06/21 Status: Ordered ibuprofen 600 mg oral tablet 600 mg, 1, tablet, By Mouth, 3 times a day, # 90 tablet, Refills 0, Tot. Refills 0, Maintenance, 11/06/21 15:03:00 EST, Route to Pharmacy Electronically, [id number], Partial fill upon patient request if the prescription is for a schedule II... Start Date: 11/06/21 Status: Ordered MiraLax = 17 Gm, By Mouth, Daily, 0 Refills, Maintenance, 11/06/21 14:42:00 EST, Partial fill upon patient request if the prescription is for a schedule II opioid drug. Start Date: 11/06/21 Status: Ordered Problem List Condition Confirmation Course Effective Dates Status [facility] History of bilateral breast implants Confirmed Active Lumbar radiculitis Confirmed Active Myofascial pain Confirmed Active Urinary incontinence Confirmed Active Social History Social History Type Response Smoking Status Never smoker entered on: 11/09/13 Sex Patient Care team information Personnel Name: Huma Vivar MD Address: Address: [address] [place] [address] Adult and Pediatric Medicine [address]
--- OUTSIDE RECORDS SUMMARY | 2023-07-04 15:06 | XMS_ITS | Continuity of Care Document ---
Author Name Unknown Organization [facility] Address [address] [place] [address]- Care Team Providers Care Bartender Server Name Role Phone Huma Vivar MD Primary Care Physician Encounter [facility] Date(s): 08/04/22 - 12/02/22 [facility] [address] [place] [address]- Attending Physician: Jeffrey Ambrocio MD Admitting Physician: [...] tetanus/diphtheria/pertussis, acel(Tdap) 01/25/14 Given 1Result Comment: [11/17/2017] 80828-114-91 2Result Comment: [11/12/2016] PER PT 3Admin Note: [...] Team Personnel Name: Huma Vivar MD Position: [facility] Primary Care Physician Member Role: PCP Address: Address: [address] [place] [address] Adult [place] [address]- Name: Denise Santoro RN Position: [facility] RN Member Role: Primary Care Nurse Care Team Related Persons Name: PHILIP CHAMBERLAIN Address: [address] [address]
--- OUTSIDE RECORDS SUMMARY | 2023-07-04 15:06 | XMS_ITS | Continuity of Care Document ---
Author Name Unknown Organization [facility] Address [address] [place] [address]- Care Team Providers Care Choirmaster Name Role Phone Cb ARIAS, Huma Primary Care Physician Encounter [facility] Date(s): 10/12/20 - 11/11/20 [facility] [address] [place], [place] [address] Allergies, Adverse Reactions, Alerts Substance Reaction [...] tetanus/diphtheria/pertussis, acel(Tdap) 01/25/14 Given 1Result Comment: [11/17/2017] 75801-621-55 2Result Comment: [11/12/2016] PER PT 3Admin Note: [...]
--- OUTSIDE RECORDS SUMMARY | 2023-07-04 15:06 | XMS_ITS | Continuity of Care Document ---
Author Name Unknown Organization [facility] Address [address] [place] [address]- Care Team Providers Care Environmental Control Administrator Name Role Phone Cb ARIAS, Huma Primary Care Physician Encounter [facility] Date(s): 10/13/22 - 11/12/22 [facility] [address] [place] [address]- Allergies, Adverse Reactions, Alerts No Known Allergies [...] tetanus/diphtheria/pertussis, acel(Tdap) 01/25/14 Given 1Result Comment: [11/17/2017] 18513-288-59 2Result Comment: [11/12/2016] PER PT 3Admin Note: [...] Team Personnel Name: Huma Vivar MD Position: [facility] Primary Care Physician Member Role: PCP Address: Address: [address] [place] [address] Adult [place] [address]- Name: Denise Santoro RN Position: [facility] RN Member Role: Primary Care Nurse Care Team Related Persons Name: PHILIP CHAMBERLAIN Address: [address] [address]
--- OUTSIDE RECORDS SUMMARY | 2023-07-04 15:06 | XMS_ITS | Continuity of Care Document ---
Author Name Unknown Organization [facility] Address [address] [place] [address]- Care Team Providers Care Barrel Scraper Name Role Phone Huma Vivar MD Primary Care Physician Encounter [facility] Date(s): 03/07/23 - 04/06/23 [facility] [address] [place] [address]- Attending Physician: AdmDavid dixno Admitting Physician: AdmtrDavid Referring Physician: Admtr, Ar8 Allergies, Adverse Reactions, [...] tetanus/diphtheria/pertussis, acel(Tdap) 01/25/14 Given 1Result Comment: [11/17/2017] 90375-058-95 2Result Comment: [11/12/2016] PER PT 3Admin Note: [...] 10/18/22 14:21:00 EST, Powder, [facility] Partial fill upon patient request if the prescriptionis for a schedule II opioid drug., 137.16, cm, 0... Start Date: 10/18/22 Status: Ordered meloxicam 15 mg oral tablet 1 tablet = 15 mg, By Mouth, Daily, # 30 tablet, 4 Refills, Maintenance, 02/11/23 14:32:00 EDT, Tablet, [facility] #[id number], Partial fill upon patient request [...] Huma Vivar MD Position: [facility] Primary Care Physician Member Role: PCP Address: Address: [address] [place] [address] Adult [place] [address]- Name: Denise Santoro RN Position: [facility] RN Member Role: Primary Care Nurse Care Team Related Persons Name: PHILIP CHAMBERLAIN Address: [address] [address]
[2023-07-04 15:15] VITALS: BP 118/64; BMI 21.8
--- NOTE | 2023-07-04 15:15 | MHC.OFFVIS ---
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 Complaining of urgency and urge incontinence, no leakage of urine upon coughing sneezing or lifting heavy objects no dysuria or frequency Last Pap/HPV was negative in 07/19 Last Mammogram was BI-RADS 1 in 05/20 Last Colonoscopy was in 2019, the recommendation was to repeat in 5 years [facility] Medical History Back pain Surgical History H/O foot surgery Social History Patient Tobacco Use Status: Never used Tobacco Female Reproductive History Menstrual Age of Menarche: 14 control method: none Total pregnancies: 2 Full term: 2 Number of Living Children: 2 Date of last pap smear: 07/01/22 (negative) Date of Mammogram: 03/16/22 Review of Systems Const All systems reviewed & are unremarkable except as noted in HPI and below Card Reports as per HPI Resp Reports as per HPI GI Reports as per HPI and Reports no additional complaints Reports as per HPI Physical Exam Vital Signs: Last Vital Signs BP 118/64 07/04/23 15:15 BMI result Body Mass Index 21.8 Const General: cooperative, healthy appearing and comfortable Chest Chest palpation & inspection: normal inspection of the chest and normal palpation of entire chest wall Breast/axilla inspection: normal inspection of the breasts and normal inspection of the axillae Breast/axilla palpation: normal palpation of the breasts, normal palpation of the axillae and no axillary lymphadenopathy Resp Effort & Inspection: normal respiratory effort Auscultation: clear to auscultation bilaterally Percussion: percussion normal Cardio Palpation: normal PMI Rate: regular rate Rhythm: regular rhythm Heart sounds: no murmurs and no rubs Peripheral pulses: Peripheral pulses 2+ throughout GI Inspection: Yes normal to inspection Palpation (GI): Soft to palpation, nontender, no guarding, not rigid and No hepatosplenomegaly present Percussion: Yes normal to percussion Auscultation: normal bowel sounds Rectal Exam - Female: deferred General: Yes bladder normal to palpation External Female Exam: No lesion Speculum Exam - Vagina: normal appearance of the vagina, normal palpation, normal vaginal discharge and not erythematous Speculum Exam - Cervix: normal appearance of the cervix and normal palpation Bimanual exam- vagina & uterus: normal bimanual exam, normal palpation, uterine size normal, bladder normal to palpation, consistency normal and normal palpation Bimanual Exam- Adnexa, other: normal adnexae, no masses and no tenderness Assessment & Plan Assessment & Plan (1) Well woman exam: Code(s): Z01.419 - Encounter for gynecological examination (general) (routine) without abnormal findings Plan: Co testing not indicated this. Counseled the patient about the recommended dietary allowance of 1200 mg of Calcium & 600 IU of vitamin D. Instructions given the patient to schedule her next screening mammogram in 05/21 , the patient is up-to-date with her screening colonoscopy . The patient was instructed to perform monthly self-breast exams and schedule annual exam in a year; all questions answered and the patient verbalized understanding. (2) Urgency incontinence: Code(s): N39.41 - Urge incontinence Plan: Urine dip done in the office was negative. Discussed with the patient the different causes of urgency and urge incontinence. We will refer to Urology. All questions answered, the patient verbalized understanding. Orders: Orders AMB Urinalysis Automated Today N39.41 - Urge incontinence Referrals Urology Referral N39.41 - Urge incontinence Coding Level of Care Code Est Pt Prev Care 40-64y([address]) Diagnoses Well woman exam Z01.419 Urgency incontinence N39.41
== END 2023-07-04 15:56 | disposition home or self-care (01) ==
LOC: HO.HWS 15:04
PROVIDERS: PCP Internal Medicine; Visit Provider Obstetrics & Gynecology
DX: Z01.419 Encounter for gynecological examination (general) (routine) without abnormal findings (principal); N39.41 Urge incontinence
CPT/HCPCS: 99396

== ENCOUNTER → 2023-07-04 15:04 | Outpatient (BNVA) | payer BC, SELFPAY | PROVIDERS: PCP Internal Medicine; Visit Provider Obstetrics & Gynecology | DX: Z01.419 Encounter for gynecological examination (general) (routine) without abnormal findings (principal); N39.41 Urge incontinence | CPT/HCPCS: 81003 ==

== ENCOUNTER → 2024-08-04 10:30 | Outpatient (BNV) | payer BC, SELFPAY | PROVIDERS: PCP Internal Medicine; Visit Provider Internal Medicine | DX: Z12.31 Encounter for screening mammogram for malignant neoplasm of breast (principal) | CPT/HCPCS: 77063; 77067 ==

== ENCOUNTER 2024-08-04 10:44 | Outpatient (REF) | payer BC, SELFPAY ==
--- NOTE | ~2024-08-04 | MM_ITS ---
EXAMINATION: MM SCREENING DIGITAL BREAST TOMOSYNTHESIS, BILATERAL CLINICAL INFORMATION: Screening. Asymptomatic. COMPARISON: Mammography: Comparison is made with available prior exams. TECHNIQUE: Digital mammography is performed in craniocaudal and mediolateral oblique views along with computer-aided detection (CAD). Digital breast tomosynthesis is performed in implant-displaced craniocaudal and implant-displaced mediolateral oblique views along with computer-aided detection (CAD). Synthesized 2D images are generated from the tomosynthesis. FINDINGS: The breasts are heterogeneously dense, which may obscure small masses (ACR BI-RADS breast composition Category c). Bilateral retropectoral saline implants are normal-appearing. There are no significant masses, abnormal calcifications, or other abnormalities. MM/MM tomosynthesis screen imp BI IMPRESSION: There are no significant changes from prior study. ASSESSMENT: BI-RADS BI-RADS 2 - Benign Findings RECOMMENDATION: Routine annual mammography screening. 1 year F/U This patient's information was entered into a reminder system with a target due date for their next mammogram. Electronically signed by: Ambar Garcia DO 08/20/2024 06:18 AM EDT
== END 2024-08-04 10:45 | disposition home or self-care (01) ==
LOC: HO.MAMMO 10:44
PROVIDERS: PCP Internal Medicine; Visit Provider Internal Medicine
DX: Z12.31 Encounter for screening mammogram for malignant neoplasm of breast (principal)
CPT/HCPCS: 77063; 77067

== ENCOUNTER 2025-05-29 15:38 | Outpatient (AMB) | payer BC, SELFPAY ==
--- NOTE | 2025-05-29 15:38 | A.OFFVIS_ITS ---
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 No complaints. 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 Sexual orientation: Straight/Heterosexual Gender identity: Female Female Reproductive History Menstrual Age of Menarche: 14 Menopause type: natural Date of last pap smear: 07/01/22 Date of Mammogram: 05/29/24 Review of Systems Const All systems reviewed & are unremarkable except as noted in HPI and below Card Reports as per HPI Resp Reports as per HPI GI Reports as per HPI and Reports no additional complaints Reports as per HPI Physical Exam Const General: cooperative, healthy appearing and comfortable Chest Chest palpation & inspection: normal inspection of the chest and normal palpation of entire chest wall Breast/axilla inspection: normal inspection of the breasts and normal inspection of the axillae Breast/axilla palpation: normal palpation of the breasts, normal palpation of the axillae and no axillary lymphadenopathy Resp Effort & Inspection: normal respiratory effort Auscultation: clear to auscultation bilaterally Percussion: percussion normal Cardio Palpation: normal PMI Rate: regular rate Rhythm: regular rhythm Heart sounds: no murmurs and no rubs Peripheral pulses: Peripheral pulses 2+ throughout GI Inspection: Yes normal to inspection Palpation (GI): Soft to palpation, nontender, no guarding, not rigid and No hepatosplenomegaly present Percussion: Yes normal to percussion Auscultation: normal bowel sounds Rectal Exam - Female: deferred General: Yes bladder normal to palpation External Female Exam: No lesion Speculum Exam - Vagina: normal appearance of the vagina, normal palpation, normal vaginal discharge and not erythematous Speculum Exam - Cervix: normal appearance of the cervix and normal palpation Bimanual exam- vagina & uterus: normal bimanual exam, normal palpation, uterine size normal, bladder normal to palpation, consistency normal and normal palpation Bimanual Exam- Adnexa, other: normal adnexae, no masses and no tenderness Assessment & Plan Assessment & Plan (1) Well woman exam: Code(s): Z01.419 - Encounter for gynecological examination (general) (routine) without abnormal findings Category: Medical Plan: Co testing not indicated this year. Counseled the patient about the recommended dietary allowance of 1200 mg of Calcium & 600 IU of vitamin D. Instructions given the patient to schedule next screening Mammogram in 08/22. The patient was referred to GI and is in the process of scheduling her screening colonoscopy . The patient was instructed to perform monthly self-breast exams and schedule annual exam in a year. All questions answered and the patient verbalized understanding. Coding Level of Care Code Est Pt Prev Care 40-64y([address]) Diagnoses Well woman exam Z01.419
[2025-05-29 15:40] VITALS: BP 110/68; BMI 21.6
--- OUTSIDE RECORDS SUMMARY | 2025-05-29 15:45 | XMS_ITS | Clinical Summary ---
Author Organization [facility] Address [address] [place] [address] Care Team Providers Care Commercial Door Installer Name Role Phone Unavailable Primary Care Provider Unavailabl e Social History Tobacco Use Types Packs/Day Years Used Date Smoking Tobacco: Never Assessed Sex and Gender Information Value Date Recorded Sex Assigned at Not on file Gender Identity Not on file Sexual Orientation Not on file Plan of Treatment Not on file
--- OUTSIDE RECORDS SUMMARY | 2025-05-29 15:45 | XMS_ITS | Data Portability ---
Author Organization [place] - [facility], [facility] Address [address] [place] [address] [id number] [place] [address] Care Team Providers Care Esthetician/Spa Coordinator Name Role Phone MAMIE WELDON Primary Care Provider [phone] Assessment Encounter Date Assessment Date Assessment LastModified by Organization Details LastModified Time 04/24/2019 04/24/2019 Normal pelvic exam Except possible RIGHT ovarian cyst USN to evaluate PAP/HPV MGM due BSE reinforced Normal vs abnormal menses reviewed Call with any issues or concerns Contraception: Paragard 06/12 Chronic constipation: Colonoscopy planned for 06/15 RTC annual/prn vferlan Not available 04/24/2019 11:51:04 Plan of Treatment Reminders Order Date Submit Date Provider Last Modified By Organization Details Last Modified Time Details Appointments None recorded. Lab urinalysi s, dipstick 2018 019 vferlan In-Office Order, Internal Use Only DO Not Attach Compendium DO Not Attach Compendium, Do Not Delete/merge, [id number] 11:24:42 pap, IG + HPV 2018 019 [facility], [address] [place], [address] 9 12:27:24 Referral None recorded. Procedures None recorded. Surgeries None recorded. Imaging MAMMO, screening , digital, bilateral , w/ CAD 2018 019 [facility] (Mammo), [address] [place] [address] [place], [address], 9 15:44:19 Medication Orders None recorded. Patient TargetsNo targets recorded. Patient Instructions Encounter Date Encounter Id Patient Instructions Last Modified By Organization Details Last Modified Time 04/24/2019 [id number] mammogram: about this test vferlan Not available 04/24/2019 11:27:21 tips to help you stay healthy vferlan Not available 04/24/2019 11:24:42 Reason for Referral None Reported. Results Created Date Observation Date Name Description Value Unit Range Abnormal Flag Note LastModifiedBy Organization Detail LastModifiedTime 04/24/20 19 04/24/2019 urina lysis , dipst ick Interpretati on negati ve Not Available In-Office Order Internal Use Only DO Not Attach Compendium DO Not Attach Compendium, Do Not Delete/merge, [id number] 04/24/2019 11:14:31 04/24/20 19 04/25/2019 pap, IG + HPV HPV result Negati ve negati ve APTIM A HPV assay detec ts 14 high risk HPV types (HPV 16,18 ,31,3 3,35, 39,45 , 51,52 ,56,5 8,59, 66,68 ). The assay is FDA appro enrrique for testi ng ThinP rep liqui d Pap vials but not FDA appro enrrique for detec ting HPV in SureP ath liqui d Pap speci mens. In-ho use valid ation has shown the assay can detec t all HPV types from [facility] Not Available [facility] [address] [place] [address], [address] 04/26/2019 12:27:24 04/24/20 19 04/26/2019 pap, IG + HPV report GYNEC OLOGI YONNY CYTOL OGY REPOR T A. THINP REP PAP (IMAG ER) WITH HPV SCREE N AND REFLE X TO HPV 16,18 /45: SPECI MEN ADEQU ACY: SATIS FACTO RY FOR EVALU ATION ; ENDOC ERVIC AL/TR ANSFO RMATI ON ZONE COMPO NENT PRESE NT. INTER PRETA TION: NEGAT URIEL FOR INTRA EPITH ELIAL LESIO N OR LETICIA MUNOZ . PARTI ALLY OBSCU RING INFLA MMATI ON. Elect jef gonzalez Krystal d Out By: NEO TEAGUE BLACK MAN, CT( CP) CLINI YONNY INFOR MATIO N: LMP: 2018 Z01.4 19 Biops y Date: NI Numbe r of vials /slid es submi tted: 1 Speci men [facility] e: CERVI X/VAG INAL/ ENDOC ERVIX Hyste recto my: N/A Abnor mal Pap Date: N Autom ated presc boo medina of all liqui d based speci mens is perfo rmed by the ThinP rep Christine meidna Syste m, unles s other plasc[place] state d. The Pap test is a scree jaxson test with an inher ent false negat uriel rate. [facility] , [address] [place] [address] CLIA [id number] [id number]. Not Available [facility] [address] [place], [address] 04/26/2019 12:27:24 09/26/20 19 09/18/2019 christine medina/mackenzie spangler tic resul t No observ ation record ed. vferlan Not Available 2018 14:06:23 Result Notes None recorded. Problems No Known Problems Procedures Surgical History Date Name Laterality Status Provider Name and Address Organization Details Recorded Time 9 [facility] 11:25:39 7 Date of Last Mammogram completed Zakiya Saabhuy [facility] 04/24/2019 11:21:55 7 Date of Last Pap Smear completed Zakiyaibrahima Saabhuy [facility] 04/24/2019 11:21:16 7 Date of Last Colonoscopy completed Zakiya Saabhuy [facility] 04/24/2019 11:22:21 7 Other completed Zakiya Day [facility] 04/24/2019 11:20:06 Imaging Results None recorded. Procedure Notes None recorded. Medical Equipment None Reported. Allergies No known drug allergies Medications Name Sig Start Date Stop Date Status Note LastModified by Organization Details LastModified Time Miralax active Not Available Not Avail able Not Available multivitamin active Not Available Not Available Not Available Vitals Date Recorded Body height Body mass index (BMI) Body weight Systolic blood pressure Diastolic blood pressure Provider Name and Address Organization Details Last Updated DateTime 04/24/2019 160.02 cm 21.8 kg/m2 49777.86 g 120 mm[Hg] 70 mm[Hg] Zakiya Harris [facility] 9 11:17:06 Social History Question Answer Notes LastModified by [employer] Details LastModified Time Tobacco Smoking Status Never Smoker Zakiya Harris [facility], [facility] 04/24/2019 11:09:04 Does Your Partner Physically Hurt You Or Threaten To Hurt You? No Information not available 04/24/2019 Has Your Partner Forced You To Have Sex Or Perform Sex Acts When You Did Not Want To? No Information not available 04/24/2019 Does Your Partner Insult, Scream At Or Talk Down To You? No Information not available 04/24/2019 Does Your Partner Control You Or Any Part Of Your Life? No Information not available 04/24/2019 Are You Afraid Of Your Partner? No Information not available 04/24/2019 Drug Use? No Information no t available 04/24/2019 Do You Feel Safe At Home? Yes Information not available 04/24/2019 What Was The Date Of Your Most Recent Tobacco Screening? 04/24/2019 Information not available 06/20/2019 Sex: Unknown Functional Status Question Answer Note LastModified by [employer] Details LastModified Time What is your level of alcohol consumption? None Information not available 04/24/2019 What is your exercise level? Occasional Information not available 04/24/2019 Mental Status None recorded. Family History Relationship Description Onset Age of this Age Resolved Age Notes LastModified by Organization Details LastModified Time Mother Malignant tumor of cervix 45 cbinette Not available 2018 11:18:38 Mother Hypertensive disorder cbinette Not available 2018 11:18:58 Father Hypertensive disorder cbinette Not available 2018 11:18:58 Medical History Condition Response Other N *No Diseases or Conditions N Blood clots N Breast Cancer N Benign breast disease N Colon cancer N Lung Disease N Depression N Defects or Inherited Disease N Anesthesia Complications N Headaches/Migraines N Have you ever been on isolation N Anxiety Disorder N Arthritis N HSV N Infertility N Interstitial Cystitis N Abnormal pap N Acid Reflux (GERD) N Cancer N Stroke N Endometriosis N Fibromyalgia N Spina Bifida N HIV N Heart Problems N Sexual Dysfunction N Autoimmune disorder N Thyroid Problems N Kidney or Bladder Problems N GI Problems N Eating Disorder N Anemia N Multiple Sclerosis N Psychiatric Illness N Diabetes N Ovarian Cancer N Blood Transfusions N Bladder disease N History of MRSA N Abnormal Uterine Bleeding N Hyperlipidemia N BrCa positive N Abuse/Domestic Violence N Diverticulitis N Asthma N Hepatitis N Hypertension N Osteoporosis N Thrombophilias N Gynecological History Statement/Question Response Flow Moderate Date of Last Mammogram 07/29/2017 Date of LMP 04/13/2019 IPV Screen Done 04/24/2019 Sexual Orientation heterosexual Duration of Flow (days) 7 Current Control Method IUD-Paragar d Date of Last Colonoscopy 11/28/2016 Sexually Active? Y Sexual Problems? N Date of Last Pap Smear 11/28/2016 Obstetrics History GPAL:G 2 P 2 0 0 2 Type Value Full Term 2 Living 2 Total 2 Past Encounters Encounter ID Performer Location Encounter Start Date Encounter Closed Date Diagnosis/Indication Diagnosis SNOMED-CT Code Diagnosis ICD10 Code Diagnosis Note [id number] BHARATHI COSBY MD [facility] [place] [address] 04/24/2019 11:09:29 04/24/2019 15:44:19 Gynecologic examination 81967822 Z01.419 Screening mammography 24 478373 Z12.31 Health Concerns Section Related Observation LastModified by Organization Detai ls LastModified Time None Recorded Concern Status LastModified by Organization Details LastModified Time None Recorded Advance Directives Directive None Recorded Payers Insurance Date Sequence Insurance Name Policy Number Policy Shah Covered Member ID Shah Member ID Guarantor Name 04/30/2019 1 [facility] [id number] Cassiebrittney Fung [id number] Cassiebrittney Fung Notes Date Note Type Note Provider Name and Address Organization Details Recorded Time 04/24/2019 text/html [facility] Annual GYNReported bypatient.History: no gynecologic complaints; no change in interval history Menstrual cycle:Normal menses Urinary symptoms:No hematuria; No incontinence Vulva:No genital lesion Vagina:Normal vaginal discharge Breast:No breast pain; No breast lump; No nipple discharge Current Contraception:Sati sfied with current contraception; Intrauterine device (iud); Paragard inserted 2015 Sexual activity:No sexual complaints Menopausal symptoms:No menopausal symptoms Preventive measures:Encourage self breast examination; Encourage regular exercise; Followed with Q3 year pap smear and high risk HPV typing; Needs to schedule mammogram; Up to date on colonoscopy screening Feels bloated but has hx of constipation BHARATHI COSBY MD [address] [place] [address], [address], [place], [address], [place] [facility] 04/24/2019 11:51:07 OBGyn Episode No OBEpisode recorded.
--- OUTSIDE RECORDS SUMMARY | 2025-05-29 15:45 | XMS_ITS | Clinical Summary ---
Author Organization [facility] Address [address] [place] [address] Care Team Providers Care Waste Salvager Name Role Phone Huma Vivar MD Primary Care Provider [phone] Allergies No known active allergies Medications meloxicam (MOBIC) 15 MG tabletIndicatio ns:Spondylolist hesis, lumbar region TAKE ONE TABLET BY MOUTH ONCE DAILY 30 tablet 07/19/2023 Active ibuprofen (MOTRIN) 600 MG tabletIndicatio ns:Displaced fracture of fifth metatarsal bone, left foot, initial encounter for closed fracture Take 1 tablet (600 mg total) by mouth 4 times daily (every 6 hours) as needed for mild pain. 60 tablet 06/19/2024 Active acetaminophen (TYLENOL) 500 MG tabletIndicatio ns:Right foot pain Take 1 tablet (500 mg total) by mouth 4 times daily (every 6 hours) as needed for mild pain or moderate pain. 84 tablet 11/07/2024 Active aspirin enteric coated (ECOTRIN LOW STRENGTH) 81 MG EC tabletIndicatio ns:Right foot pain Take 1 tablet (81 mg total) by mouth 2 times a day. With Food Post op 42 tablet 11/07/2024 Active oxyCODONE (ROXICODONE) 5 MG immediate release tabletIndicatio ns:Right foot pain Take 1 tablet (5 mg total) by mouth 4 times daily (every 6 hours) as needed for severe pain. Max Daily Amount: 20 mg 12 tablet 11/07/2024 Active Active Problems No known active problems Social History Tobacco Use Types Packs/Day Years Used Date Smoking Tobacco: Never Smokeless Tobacco: Never Tobacco Cessation:Counseling Given: Not Answered Alcohol Use Standard Drinks/Week Comments Never 0 (1 standard drink = 0.6 oz pur e alcohol) Comments Unknown Sex and Gender Information Value Date Recorded Sex Assigned at Female 09/23/2023 12:56 PM EDT Legal Sex Female 10:12 AM EDT Gender Identity Female 09/23/2023 12:56 PM EDT Sexual Orientation Heterosexual (straight) 09/23 12:56 PM EDT Last Filed Vital Signs Vital Sign Reading Time Taken Comments Blood Pressure 124/63 09/23/2023 12:40 PM EDT Pulse 54 09/23/2023 12:40 PM EDT Temperature 35.6 C (96.1 F) 09/23/2023 12:40 PM EDT Respiratory Rate 18 09/23/2023 12:40 PM EDT Oxygen Saturation 100% 09/23/2023 12:40 PM EDT Inhaled Oxygen Concentration - - Weight - - Height - - Body Mass Index - - Plan of Treatment Health Maintenance Due Date Last Done Comments Hepatitis C Virus Screening 1969 HIV Screening 1982 DTaP/Tdap/Td Vaccines (1 - Tdap) 1988 Hepatitis B Vaccines (1 of 3 - 19+ 3-dose series) 1988 Pap Smear (Ages 21-65) 1990 Mammogram 2009 Colonoscopy 2014 Pneumococcal Vaccines 50+ (1 of 1 - PCV) 2019 Zoster (Shingles) Vaccine (1 of 2) 2019 COVID-19 Vaccine (4 - 2023-2 5 season) 2024 11/13/2021, 03/18/2021, 02/25/2021 Influenza Vaccine 06/28/2025 10/28/2021, , 11/12/2016, Additional history exists Insurance [facility] - PPO [facility] - PPO Care Teams Waste Salvager Relationship Specialty Start Date End Date Huma Vivar MD [facility] [address] [place] [address] PCP - General Internal Medicine 09/23/23
== END 2025-05-29 15:58 | disposition home or self-care (01) ==
LOC: HO.HWS 15:38
PROVIDERS: PCP Internal Medicine; Visit Provider Obstetrics & Gynecology
DX: Z01.419 Encounter for gynecological examination (general) (routine) without abnormal findings (principal)
CPT/HCPCS: 99396; 99459

== ENCOUNTER 2025-09-27 09:04 | Outpatient (REF) | payer BC, SELFPAY ==
--- NOTE | ~2025-09-27 | MM_ITS ---
EXAMINATION: MM SCREENING DIGITAL BREAST TOMOSYNTHESIS, BILATERAL CLINICAL INFORMATION: Screening. Asymptomatic. COMPARISON: Mammography: Comparison is made with relevant avialable priors. TECHNIQUE: Digital mammography is performed in craniocaudal and mediolateral oblique views along with computer-aided detection (CAD). Digital breast tomosynthesis is performed in implant-displaced craniocaudal and implant-displaced mediolateral oblique views along with computer-aided detection (CAD). FINDINGS: The breasts are heterogeneously dense, which may obscure small masses. Bilateral retropectoral saline implants are stable appearing. Right: Asymmetry retroareolar region on implant displaced MLO O view. No suspicious calcifications or other abnormal findings. Left: There are no significant masses, abnormal calcifications, or other abnormalities. MM/MM tomosynthesis screen imp BI IMPRESSION: Additional images recommended at this time. ASSESSMENT: BI-RADS Category 0: Incomplete - Need additional Imaging Evaluation RECOMMENDATION: 1. Additional views of the right breast. 2. Targeted ultrasound if warranted after review of the additional views. 3. Radiology department staff will contact the patient for additional imaging. Additional Imaging required This patient's information was entered into a reminder system with a target due date for their next mammogram. Electronically signed by: Ambar Garcia DO 09/27/2025 04:02 PM EDT
--- OUTSIDE RECORDS SUMMARY | 2025-09-27 09:49 | XMS_ITS | Clinical Summary ---
Author Organization [facility] Address [address] [place] [address] Care Team Providers Care Fashion Merchandiser Name Role Phone Unavailable Primary Care Provider Unavailabl e Social History Tobacco Use Types Packs/Day Years Used Date Smoking Tobacco: Never Assessed Sex and Gender Information Value Date Recorded Sex Assigned at Not on file Gender Identity Not on file Sexual Orientation Not on file Plan of Treatment Not on file
--- OUTSIDE RECORDS SUMMARY | 2025-09-27 09:49 | XMS_ITS | Clinical Summary ---
Author Organization [facility] Address [address] [place] [address] Phone Care Team Providers Care Fire Prevention Inspector Name Role Phone Huma Vivar MD Primary Care Provider [phone] Allergies No known active allergies Medications polyethylene glycol (MIRALAX) 17 gram/dose powder Miralax Active MULTIVITAMIN ORAL multivitamin Active docosahexanoic acid/epa (FISH OIL ORAL) Take by mouth. Activ e ibuprofen (ADVIL ORAL) Take by mouth. Ac tive Social History Tobacco Use Types Packs/Day Years Used Date Smoking Tobacco: Never Smokeless Tobacco: Never Tobacco Cessation:Ready to Q uit: No Education Answer Date Recorded Are you interested in more education? Not on vic e 03/25/2023 Are you concerned about learning? Not on file 03/25/2023 No 03/25/2023 No 03/25/2023 Digital Access Answer Date Recorded No 04/23/2023 No 04/23/2023 No 04/23/2023 Reliable internet access at home? Not on file 04/23/2023 Device with a working camera? Not on file Comments Unknown Sex and Gender Information Value Date Recorded Sex Assigned at Not on file Legal Sex Female 11:10 AM EDT Gender Identity Not on file Sexual Orientation Not on file Last Filed Vital Signs Vital Sign Reading Time Taken Comments Blood Pressure 104/66 04/24/2020 3:10 PM EDT Pulse 54 04/24/2020 3:10 PM EDT Temperature - - Respiratory Rate 16 04/24/2020 3:10 PM EDT Oxygen Saturation - - Inhaled Oxygen Concentration - - Weight 55.3 kg (122 lb) 04/24/2020 3:10 PM EDT Height 160 cm (5' 3 ) 04/24/2020 3:10 PM EDT Body Mass Index 21.61 04/24/2020 3:10 PM EDT Plan of Treatment Health Maintenance Due Date Last Done Comments Adult Td,Tdap Booster 1969 LIPID PANEL 1969 DEPRESSION SCREENING 1981 HEPATITIS C SCREENING 1987 HIV ONE-TIME SCREENING (18-6 5 YEARS) 1987 PAP SMEAR 1990 MAMMOGRAM 2009 COLOGUARD 2014 COLONOSCOPY 2014 COLORECTAL CANCER SCREENING 2014 FIT TEST 2014 FOBT 2014 SIGMOIDOSCOPY 2014 VIRTUAL COLONOSCOPY 2014 PNEUMOCOCCAL VACCINES (50+ y ears) (1 of 1 - PCV) 2019 ZOSTER VACCINES (1 of 2) 2019 INFLUENZA VACCINE (#1) 2025 COVID-19 VACCINE (2 - 2024-2 6 season) 2025 11/13/2021 RSV VACCINE (1 - 1-dose 75+ series) 2044 SMOKING STATUS SCREENING (On ce After 26 Yrs) Completed 04/24/2020 HEPATITIS A VACCINES Aged Out No long er eligible based on patient's age to complete this topic HIB VACCINES Aged Out No longer eligi ble based on patient's age to complete this topic MENINGOCOCCAL VACCINES (ACWY) Aged Out No longer eligible based on patient's age to complete this topic MENINGOCOCCAL VACCINES (B) Aged Out N o longer eligible based on patient's age to complete this topic Medical Devices Not on file Insurance [facility] UNITED PPO UNITED PPO UNITED PPO UNITED PPO UNITED PPO [place] [address] [address] PPO [employer] PPO Care Teams Fire Prevention Inspector Relationship Specialty Start Date End Date Huma Vivar MD [address] [place] [address] PCP - General Internal Medicine 05/15/19 Additional Source Comments The information contained in this document represents components of the legal health record. It is not the complete legal health record.[facility]
--- OUTSIDE RECORDS SUMMARY | 2025-09-27 09:49 | XMS_ITS | Clinical Summary ---
Author Organization [facility] Address [address] [place] [address] Care Team Providers Care Chairman And Ceo Name Role Phone Huma Vivar MD Primary Care Provider [phone] Allergies No known active allergies Medications meloxicam [...] Mass Index - - Plan of Treatment Upcoming Encounters Date Type Department Care Team (Late st Contact Info) Description 11/01/2025 10:00 AM EST Office [place] [address] Damien Nuno MD [address] [place] [address] Health Maintenance Due Date Last Done Comments Hepatitis C Virus Screening 1969 HIV Screening 1982 DTaP/Tdap/Td Vaccines (1 - Tdap) 1988 Hepatitis B Vaccines (1 of 3 - 19+ 3-dose series) 1988 Pap Smear (Ages 21-65) 1990 Mammogram 2009 Colonoscopy 2014 Pneumococcal Vaccines 50+ (1 of 1 - PCV) 2019 Zoster (Shingles) Vaccine (1 of 2) 2019 Influenza Vaccine 06/28/2025 10/28/2021, , 11/12/2016, Additional history exists COVID-19 Vaccine (4 - 2024-2 6 season) 2025 11/13/2021, 03/18/2021, 02/25/2021 RSV Vaccine 50 years and old er and Patients (1 - 1-dose 75+ series) 2044 Insurance [employer]UE [employer]OSS OUT OF STATE - PPO [employer] OUT OF STATE - PPO Care Teams Chairman And Ceo Relationship Specialty Start Date End Date Huma Vivar MD [address] [facility] [address] [place] [address] PCP - General Internal Medicine 09/23/23
--- OUTSIDE RECORDS SUMMARY | 2025-09-27 09:49 | XMS_ITS ---
Author Name [facility] Organization Unknown History of Medication Use Medication Directions Dispensed Refills Start Date End Date Stat us acetaminophen (TYLENOL) 500 MG tablet Take 1 tablet (500 mg total) by mouth 4 times daily (every 6 hours) as needed for mild pain or moderate pain. 11/07/2024 active aspirin enteric coated (ECOTRIN LOW STRENGTH) 81 MG EC tablet Take 1 tablet (81 mg total) by mouth 2 times a day. With Food Post op 11/07/2024 active oxyCODONE (ROXICODONE) 5 MG immediate release tablet Take 1 tablet (5 mg total) by mouth 4 times daily (every 6 hours) as needed for severe pain. Max Daily Amount: 20 mg 11/07/2024 active ibuprofen (MOTRIN) 600 MG tablet Take 1 tablet (600 mg total) by mouth 4 times daily (every 6 hours) as needed for mild pain. 06/19/2024 07/05/2024 active meloxicam (MOBIC) 15 MG tablet TAKE ONE TABLET BY MOUTH ONCE DAILY 07/19/2023 active Problems Problem Status Onset Date Problem Type Date of Resoluti on Source Right foot pain [facility] Encounter Type Encounter Reason Primary Diagnosis Location Date Ambulatory Spinal stenosis, lumbar region with neurogenic claudication Spinal stenosis, lumbar region with neurogenic claudication [facility] 09/28/2024 [facility] [employer] 07/17/2024 Ambulatory Displaced fracture of fifth metatarsal bone, left foot, initial encounter for closed fracture Displaced fracture of fifth metatarsal bone, left foot, initial encounter for closed fracture [place] [employer] [facility] 07/17/2024 [facility] [facility] 07/03/2024 Ambulatory Pain in right foot Pain in right foot [facility] [employer] [facility] 07/03/[address] [facility] 06/19/2024 Ambulatory Pain in left ankle and joints of left foot Pain in left ankle and joints of left foot [facility] 06/19/2024 Emergency Chest pain, unspecified Chest pain, unspecified [facility] 09/23/2023 Care Team Organization Name Specialty Phone Email Start Date End Da jenny [facility] 08/07/2024 [facility] 09/23/2023 02/13/2025 [facility] MAMIE WELDON Primary Care 09/23/2023 [facility]
== END 2025-09-27 09:05 | disposition home or self-care (01) ==
LOC: HO.MAMMO 09:04
PROVIDERS: PCP Internal Medicine; Visit Provider Internal Medicine
DX: Z12.31 Encounter for screening mammogram for malignant neoplasm of breast (principal)
CPT/HCPCS: 77063; 77067

== ENCOUNTER → 2025-09-27 09:15 | Outpatient (BNV) | payer BC, SELFPAY | PROVIDERS: PCP Internal Medicine; Visit Provider Internal Medicine | DX: Z12.31 Encounter for screening mammogram for malignant neoplasm of breast (principal) | CPT/HCPCS: 77063; 77067 ==

== ENCOUNTER 2025-10-30 08:59 | Outpatient (REF) | payer BC, SELFPAY ==
--- NOTE | ~2025-10-30 | US_ITS ---
EXAMINATION: MM DIAGNOSTIC DIGITAL BREAST TOMOSYNTHESIS, RIGHT Right limited ultrasound. CLINICAL INFORMATION: Call back from screening for asymmetry in the retroareolar region of the right breast. COMPARISON: Mammography: [facility] on PACS. TECHNIQUE: Digital breast tomosynthesis is performed in both the craniocaudal and mediolateral oblique views along with computer-aided detection (CAD). Synthesized 2D images are generated from the tomosynthesis. FINDINGS: The breasts are heterogeneously dense, which may obscure small masses. Asymmetry retroareolar region of the right breast partially effaces on additional imaging projections. No suspicious calcifications or other abnormal findings. Targeted color Doppler ultrasound scanning in the retroareolar region and 6:00 of the right breast demonstrates normal fibronodular breast tissue. There is no sonographic abnormal finding. US/US Breast RT Limited Mamm Only IMPRESSION: Asymmetry retroareolar region lower central breast which partially effaces on mammography and without sonographic correlate. Recommend 6 month follow-up right breast mammogram for further evaluation of stability. ASSESSMENT: BI-RADS Category 3: Probably benign RECOMMENDATION: 6 Month F/U Results were provided to the patient at time of visit by the technologist. This patient's information was entered into a reminder system with a target due date for their next mammogram. Electronically signed by: Ambar Garcia DO 10/30/2025 10:52 AM [facility]
--- OUTSIDE RECORDS SUMMARY | 2025-10-30 09:31 | XMS_ITS | Clinical Summary ---
Author Organization [facility] Address [address] [place] [address] Care Team Providers Care It Applications Manager Name Role Phone Huma Vivar MD Primary Care Provider [phone] Allergies No known active allergies Medications meloxicam [...] 10:00 AM EST Office [place] [address] Damien Nuno MD [address] [place] [address] Health Maintenance Due Date Last Done Comments [...] OUT OF STATE - PPO Care Teams It Applications Manager Relationship Specialty Start Date End Date Huma Vivar MD [address] [facility] [address] [place] [address] PCP - General Internal Medicine 09/23/23
--- OUTSIDE RECORDS SUMMARY | 2025-10-30 09:31 | XMS_ITS | Clinical Summary ---
Author Organization [facility] Address [address] [place] [address] Phone Care Team Providers Care Plunket Nurse Name Role Phone Huma Vivar MD Primary Care Provider [phone] Allergies No known active allergies Medications [...] topic Medical Devices Not on file [facility] UNITED PPO UNITED PPO UNITED PPO UNITED PPO [place] [address] [address] [place] [address] PPO [place] PPO Care Teams Plunket Nurse Relationship Specialty Start Date End Date Huma Vivar MD [address] [place] [address] PCP - General Internal Medicine 05/15/19 Additional Source Comments The information contained in this document represents components of the legal health record. It is not the complete legal health record.[facility]
--- OUTSIDE RECORDS SUMMARY | 2025-10-30 09:31 | XMS_ITS | Clinical Summary ---
Author Organization [facility] Address [address] [place] [address] Care Team Providers Care Property Clerk Name Role Phone Unavailable Primary Care Provider Unavailabl e Social History Tobacco Use Types Packs/Day Years Used Date Smoking Tobacco: Never Assessed Sex and Gender Information Value Date Recorded Sex Assigned at Not on file Gender Identity Not on file Sexual Orientation Not on file Plan of Treatment Not on file
== END 2025-10-30 09:00 | disposition home or self-care (01) ==
LOC: HO.MAMMO 08:59
PROVIDERS: PCP Internal Medicine; Visit Provider Internal Medicine
DX: N64.89 Other specified disorders of breast (principal); R92.8 Other abnormal and inconclusive findings on diagnostic imaging of breast
CPT/HCPCS: 76642; 77061; 77065

== ENCOUNTER → 2025-10-30 09:00 | Outpatient (BNV) | payer BC, SELFPAY | PROVIDERS: PCP Internal Medicine; Visit Provider Internal Medicine | DX: R92.8 Other abnormal and inconclusive findings on diagnostic imaging of breast (principal) | CPT/HCPCS: 76642; 77061; 77065 ==